=== PATIENT | male | born 1935 | race Caucasian/White ===

== ENCOUNTER → 2023-04-25 10:31 | Outpatient (REF) | payer MEDICARE, OTHER, SELFPAY ==
[2023-04-25 11:01] LABS: % Basophils 0.2 % (0-2); % Eosinophils 3.6 % (0-6); % Immature Granulocytes 0.2 % (0-0.5); % Monocytes 8.1 % (1.7-9.3); % Neutrophils 71.9 % (42.2-75.2); Absolute Eosinophils 0.2 10^3/uL (0-0.7); Absolute Lymphocytes 0.8 10^3/uL (1.2-3.4); Absolute Monocytes 0.4 10^3/uL (0.1-0.6); Absolute Neutrophils 3.6 10^3/uL (1.4-6.5); Hematocrit 32.5 % (39.0-52.0); Hemoglobin 10.8 g/dL (13.0-18.0); Mean Corp Hgb Conc. 33.2 g/dL (33.0-37.0); Mean Corpuscular Hgb 32.2 pg (27.0-31.0); Nucleated Red Blood Cells % 0 % (-); Platelet Count 163 10^3/uL (130-400); Red Blood Cell Count 3.35 10^6/uL (4.70-6.10); White Blood Cell Count 5.1 10^3/uL (4.8-10.8)
[2023-04-25 11:21] LABS: Iron 78 ug/dl (49-181)
[2023-04-25 11:31] LABS: Percent Saturation 23 % (20-50); Total Iron Binding Capacity 337 ug/dl (261-462)
== END ==
LOC: REG 10:31
PROVIDERS: ATTENDING PHYSICIAN Internal Medicine Hematology & Oncology; FAMILY PHYSICIAN Family Medicine
DX: Z85.46 Personal history of malignant neoplasm of prostate (principal); D50.8 Other iron deficiency anemias; D46.9 Myelodysplastic syndrome, unspecified
CPT/HCPCS: 36415; 82728; 83540; 83550; 85025

== ENCOUNTER → 2023-06-04 15:38 | Outpatient (REF) | payer MEDICARE, OTHER, SELFPAY ==
[2023-06-04 16:29] LABS: % Basophils 0.2 % (0-2); % Eosinophils 3.4 % (0-6); % Immature Granulocytes 0.5 % (0-0.5); % Lymphocytes 16.2 % (20.5-51.1); % Monocytes 9.2 % (1.7-9.3); % Neutrophils 70.5 % (42.2-75.2); Absolute Eosinophils 0.2 10^3/uL (0-0.7); Absolute Monocytes 0.6 10^3/uL (0.1-0.6); Absolute Neutrophils 4.2 10^3/uL (1.4-6.5); Hematocrit 29.7 % (39.0-52.0); Mean Corp Hgb Conc. 33.7 g/dL (33.0-37.0); Mean Corpuscular Hgb 31.9 pg (27.0-31.0); Mean Corpuscular Volume 94.9 fL (80.0-94.0); Nucleated Red Blood Cells % 0 % (-); Platelet Count 181 10^3/uL (130-400); Red Blood Cell Count 3.13 10^6/uL (4.70-6.10); Red Cell Dist. Width 14.1 % (11.5-14.5)
[2023-06-04 16:45] LABS: Iron 88 ug/dl (49-181)
[2023-06-04 16:54] LABS: Percent Saturation 28 % (20-50); Total Iron Binding Capacity 308 ug/dl (261-462)
== END ==
LOC: REG 15:38
PROVIDERS: ATTENDING PHYSICIAN Internal Medicine Hematology & Oncology; FAMILY PHYSICIAN Family Medicine
DX: Z85.46 Personal history of malignant neoplasm of prostate (principal); D50.8 Other iron deficiency anemias; D46.9 Myelodysplastic syndrome, unspecified
CPT/HCPCS: 36415; 82728; 83540; 83550; 85025

== ENCOUNTER → 2023-06-29 13:48 | Outpatient (REF) | payer MEDICARE, OTHER, SELFPAY ==
[2023-06-29 14:41] LABS: % Basophils 0.2 % (0-2); % Eosinophils 3.7 % (0-6); % Immature Granulocytes 0.2 % (0-0.5); % Lymphocytes 16.1 % (20.5-51.1); % Monocytes 8.9 % (1.7-9.3); % Neutrophils 70.9 % (42.2-75.2); Absolute Eosinophils 0.2 10^3/uL (0-0.7); Absolute Lymphocytes 0.7 10^3/uL (1.2-3.4); Absolute Monocytes 0.4 10^3/uL (0.1-0.6); Absolute Neutrophils 3.3 10^3/uL (1.4-6.5); Hematocrit 29.5 % (39.0-52.0); Hemoglobin 9.8 g/dL (13.0-18.0); Mean Corp Hgb Conc. 33.2 g/dL (33.0-37.0); Mean Corpuscular Volume 93.4 fL (80.0-94.0); Mean Platelet Volume 10.6 fL (7.4-10.4); Nucleated Red Blood Cells % 0 % (-); Platelet Count 163 10^3/uL (130-400); Red Blood Cell Count 3.16 10^6/uL (4.70-6.10); Red Cell Dist. Width 14.1 % (11.5-14.5); White Blood Cell Count 4.6 10^3/uL (4.8-10.8)
[2023-06-29 14:52] LABS: Iron 85 ug/dl (49-181)
[2023-06-29 15:03] LABS: Percent Saturation 26 % (20-50); Total Iron Binding Capacity 319 ug/dl (261-462)
== END ==
LOC: REG 13:48
PROVIDERS: ATTENDING PHYSICIAN Internal Medicine Hematology & Oncology
DX: Z85.46 Personal history of malignant neoplasm of prostate (principal); D50.8 Other iron deficiency anemias; D46.9 Myelodysplastic syndrome, unspecified
CPT/HCPCS: 36415; 82728; 83540; 83550; 85025

== ENCOUNTER → 2023-07-06 15:09 | Outpatient (REF) | payer MEDICARE, OTHER, SELFPAY ==
[2023-07-06 10:09] LABS: % Basophils 0.2 % (0-2); % Eosinophils 4.5 % (0-6); % Lymphocytes 22.6 % (20.5-51.1); % Monocytes 8.4 % (1.7-9.3); % Neutrophils 64.3 % (42.2-75.2); Absolute Eosinophils 0.2 10^3/uL (0-0.7); Absolute Lymphocytes 1.1 10^3/uL (1.2-3.4); Absolute Monocytes 0.4 10^3/uL (0.1-0.6); Hematocrit 31.6 % (39.0-52.0); Hemoglobin 10.3 g/dL (13.0-18.0); Mean Corp Hgb Conc. 32.6 g/dL (33.0-37.0); Mean Corpuscular Hgb 32.1 pg (27.0-31.0); Mean Corpuscular Volume 98.4 fL (80.0-94.0); Nucleated Red Blood Cells % 0 % (-); Platelet Count 175 10^3/uL (130-400); Red Blood Cell Count 3.21 10^6/uL (4.70-6.10); Red Cell Dist. Width 14.3 % (11.5-14.5); White Blood Cell Count 4.7 10^3/uL (4.8-10.8)
[2023-07-06 10:27] LABS: Blood Urea Nitrogen 29 mg/dl (9-20)
== END ==
LOC: OIDL 15:09
PROVIDERS: ATTENDING PHYSICIAN Internal Medicine Hematology & Oncology
DX: Z85.46 Personal history of malignant neoplasm of prostate (principal)
CPT/HCPCS: 82565; 84520; 85025

== ENCOUNTER → 2023-07-12 13:27 | Outpatient (REF) | payer MEDICARE, OTHER, SELFPAY ==
[2023-07-12 14:08] LABS: % Basophils 0.2 % (0-2); % Eosinophils 3.9 % (0-6); % Immature Granulocytes 0.4 % (0-0.5); % Lymphocytes 16.9 % (20.5-51.1); % Monocytes 11.7 % (1.7-9.3); % Neutrophils 66.9 % (42.2-75.2); Absolute Eosinophils 0.2 10^3/uL (0-0.7); Absolute Lymphocytes 0.9 10^3/uL (1.2-3.4); Absolute Monocytes 0.6 10^3/uL (0.1-0.6); Absolute Neutrophils 3.6 10^3/uL (1.4-6.5); Hematocrit 29.7 % (39.0-52.0); Hemoglobin 9.8 g/dL (13.0-18.0); Mean Corpuscular Hgb 31.5 pg (27.0-31.0); Mean Corpuscular Volume 95.5 fL (80.0-94.0); Mean Platelet Volume 9.7 fL (7.4-10.4); Nucleated Red Blood Cells % 0 % (-); Platelet Count 167 10^3/uL (130-400); Red Blood Cell Count 3.11 10^6/uL (4.70-6.10); Red Cell Dist. Width 14.5 % (11.5-14.5); White Blood Cell Count 5.4 10^3/uL (4.8-10.8)
== END ==
LOC: REG 13:27
PROVIDERS: ATTENDING PHYSICIAN Internal Medicine Hematology & Oncology; FAMILY PHYSICIAN Family Medicine
DX: Z85.46 Personal history of malignant neoplasm of prostate (principal); D50.8 Other iron deficiency anemias; D46.9 Myelodysplastic syndrome, unspecified
CPT/HCPCS: 36415; 85025

== ENCOUNTER → 2023-07-23 14:44 | Outpatient (REF) | payer MEDICARE, OTHER, SELFPAY ==
[2023-07-23 16:14] LABS: % Basophils 0.2 % (0-2); % Eosinophils 2.8 % (0-6); % Immature Granulocytes 0.4 % (0-0.5); % Lymphocytes 14.2 % (20.5-51.1); % Neutrophils 73.4 % (42.2-75.2); Absolute Eosinophils 0.2 10^3/uL (0-0.7); Absolute Lymphocytes 0.8 10^3/uL (1.2-3.4); Absolute Monocytes 0.5 10^3/uL (0.1-0.6); Absolute Neutrophils 4.1 10^3/uL (1.4-6.5); Hematocrit 31.8 % (39.0-52.0); Hemoglobin 10.7 g/dL (13.0-18.0); Mean Corp Hgb Conc. 33.6 g/dL (33.0-37.0); Mean Corpuscular Hgb 31.2 pg (27.0-31.0); Mean Corpuscular Volume 92.7 fL (80.0-94.0); Mean Platelet Volume 10.1 fL (7.4-10.4); Nucleated Red Blood Cells % 0 % (-); Platelet Count 161 10^3/uL (130-400); Red Blood Cell Count 3.43 10^6/uL (4.70-6.10); Red Cell Dist. Width 15.4 % (11.5-14.5); White Blood Cell Count 5.6 10^3/uL (4.8-10.8)
== END ==
LOC: REG 14:44
PROVIDERS: ATTENDING PHYSICIAN Internal Medicine Hematology & Oncology; FAMILY PHYSICIAN Family Medicine
DX: Z85.46 Personal history of malignant neoplasm of prostate (principal); D50.8 Other iron deficiency anemias; D46.9 Myelodysplastic syndrome, unspecified
CPT/HCPCS: 36415; 85025

== ENCOUNTER → 2023-08-01 12:42 | Outpatient (REF) | payer MEDICARE, OTHER, SELFPAY ==
[2023-08-01 14:06] LABS: % Basophils 0.2 % (0-2); % Eosinophils 2.4 % (0-6); % Immature Granulocytes 0.2 % (0-0.5); % Lymphocytes 15.5 % (20.5-51.1); % Monocytes 9.6 % (1.7-9.3); % Neutrophils 72.1 % (42.2-75.2); Absolute Eosinophils 0.1 10^3/uL (0-0.7); Absolute Lymphocytes 0.7 10^3/uL (1.2-3.4); Absolute Monocytes 0.4 10^3/uL (0.1-0.6); Absolute Neutrophils 3.3 10^3/uL (1.4-6.5); Hematocrit 34.8 % (39.0-52.0); Hemoglobin 11.2 g/dL (13.0-18.0); Mean Corp Hgb Conc. 32.2 g/dL (33.0-37.0); Mean Corpuscular Hgb 30.7 pg (27.0-31.0); Mean Corpuscular Volume 95.3 fL (80.0-94.0); Mean Platelet Volume 9.9 fL (7.4-10.4); Nucleated Red Blood Cells % 0 % (-); Platelet Count 217 10^3/uL (130-400); Red Blood Cell Count 3.65 10^6/uL (4.70-6.10); Red Cell Dist. Width 14.8 % (11.5-14.5); White Blood Cell Count 4.6 10^3/uL (4.8-10.8)
== END ==
LOC: REG 12:42
PROVIDERS: ATTENDING PHYSICIAN Internal Medicine Hematology & Oncology; FAMILY PHYSICIAN Family Medicine
DX: Z85.46 Personal history of malignant neoplasm of prostate (principal); D50.8 Other iron deficiency anemias; D46.9 Myelodysplastic syndrome, unspecified
CPT/HCPCS: 36415; 85025

== ENCOUNTER → 2023-08-17 14:47 | Outpatient (REF) | payer MEDICARE, OTHER, SELFPAY | LOC: RAD 14:47 | PROVIDERS: ATTENDING PHYSICIAN Surgery Vascular Surgery; FAMILY PHYSICIAN Family Medicine | DX: I65.22 Occlusion and stenosis of left carotid artery (principal) | CPT/HCPCS: 93880 ==

== ENCOUNTER → 2023-08-22 12:26 | Outpatient (REF) | payer MEDICARE, OTHER, SELFPAY ==
[2023-08-22 13:11] LABS: % Basophils 0.2 % (0-2); % Eosinophils 3.1 % (0-6); % Immature Granulocytes 0.2 % (0-0.5); % Lymphocytes 16.6 % (20.5-51.1); % Monocytes 9.6 % (1.7-9.3); % Neutrophils 70.3 % (42.2-75.2); Absolute Eosinophils 0.1 10^3/uL (0-0.7); Absolute Lymphocytes 0.7 10^3/uL (1.2-3.4); Absolute Monocytes 0.4 10^3/uL (0.1-0.6); Absolute Neutrophils 3.1 10^3/uL (1.4-6.5); Hemoglobin 11.9 g/dL (13.0-18.0); Mean Corp Hgb Conc. 33.1 g/dL (33.0-37.0); Mean Corpuscular Hgb 30.7 pg (27.0-31.0); Mean Platelet Volume 9.8 fL (7.4-10.4); Nucleated Red Blood Cells % 0 % (-); Platelet Count 177 10^3/uL (130-400); Red Blood Cell Count 3.87 10^6/uL (4.70-6.10); Red Cell Dist. Width 15.5 % (11.5-14.5); White Blood Cell Count 4.5 10^3/uL (4.8-10.8)
== END ==
LOC: REG 12:26
PROVIDERS: ATTENDING PHYSICIAN Internal Medicine Hematology & Oncology; FAMILY PHYSICIAN Family Medicine
DX: Z85.46 Personal history of malignant neoplasm of prostate (principal); D50.8 Other iron deficiency anemias; D46.9 Myelodysplastic syndrome, unspecified
CPT/HCPCS: 36415; 85025

== ENCOUNTER → 2023-09-14 11:18 | Outpatient (REF) | payer MEDICARE, OTHER, SELFPAY ==
[2023-09-14 12:04] LABS: % Basophils 0.2 % (0-2); % Eosinophils 1.9 % (0-6); % Immature Granulocytes 0.2 % (0-0.5); % Lymphocytes 12.6 % (20.5-51.1); % Monocytes 6.7 % (1.7-9.3); % Neutrophils 78.4 % (42.2-75.2); Absolute Eosinophils 0.1 10^3/uL (0-0.7); Absolute Lymphocytes 0.7 10^3/uL (1.2-3.4); Absolute Monocytes 0.4 10^3/uL (0.1-0.6); Absolute Neutrophils 4.6 10^3/uL (1.4-6.5); Hematocrit 38.5 % (39.0-52.0); Hemoglobin 12.3 g/dL (13.0-18.0); Mean Corp Hgb Conc. 31.9 g/dL (33.0-37.0); Mean Corpuscular Hgb 29.5 pg (27.0-31.0); Mean Corpuscular Volume 92.3 fL (80.0-94.0); Mean Platelet Volume 9.9 fL (7.4-10.4); Nucleated Red Blood Cells % 0 % (-); Platelet Count 190 10^3/uL (130-400); Red Blood Cell Count 4.17 10^6/uL (4.70-6.10); Red Cell Dist. Width 15.5 % (11.5-14.5); White Blood Cell Count 5.9 10^3/uL (4.8-10.8)
[2023-09-14 12:59] LABS: Iron 63 ug/dl (49-181)
[2023-09-14 13:08] LABS: Percent Saturation 18 % (20-50); Total Iron Binding Capacity 339 ug/dl (261-462)
[2023-09-14 13:33] LABS: Ferritin 74.7 ng/ml (17.9-464.0)
== END ==
LOC: OIDL 11:18
PROVIDERS: ATTENDING PHYSICIAN Nurse Practitioner Primary Care
DX: Z85.46 Personal history of malignant neoplasm of prostate (principal); D50.8 Other iron deficiency anemias
CPT/HCPCS: 82728; 83540; 83550; 85025

== ENCOUNTER → 2023-10-08 13:14 | Outpatient (REF) | payer MEDICARE, OTHER, SELFPAY ==
[2023-10-08 13:52] LABS: % Basophils 0.2 % (0-2); % Eosinophils 2.8 % (0-6); % Immature Granulocytes 0.3 % (0-0.5); % Monocytes 10.4 % (1.7-9.3); % Neutrophils 73.3 % (42.2-75.2); Absolute Eosinophils 0.2 10^3/uL (0-0.7); Absolute Lymphocytes 0.8 10^3/uL (1.2-3.4); Absolute Monocytes 0.6 10^3/uL (0.1-0.6); Absolute Neutrophils 4.3 10^3/uL (1.4-6.5); Hematocrit 33.8 % (39.0-52.0); Hemoglobin 10.9 g/dL (13.0-18.0); Mean Corp Hgb Conc. 32.2 g/dL (33.0-37.0); Mean Corpuscular Hgb 29.5 pg (27.0-31.0); Mean Corpuscular Volume 91.4 fL (80.0-94.0); Mean Platelet Volume 10.1 fL (7.4-10.4); Nucleated Red Blood Cells % 0 % (-); Platelet Count 151 10^3/uL (130-400); Red Cell Dist. Width 16.1 % (11.5-14.5); White Blood Cell Count 5.8 10^3/uL (4.8-10.8)
[2023-10-08 14:12] LABS: Blood Urea Nitrogen 36 mg/dl (9-20); Iron 103 ug/dl (49-181)
[2023-10-08 14:22] LABS: Percent Saturation 31 % (20-50); Total Iron Binding Capacity 324 ug/dl (261-462)
[2023-10-08 14:56] LABS: Ferritin 98.3 ng/ml (17.9-464.0)
== END ==
LOC: REG 13:14
PROVIDERS: ATTENDING PHYSICIAN Internal Medicine Hematology & Oncology; FAMILY PHYSICIAN Family Medicine
DX: Z85.46 Personal history of malignant neoplasm of prostate (principal); D50.8 Other iron deficiency anemias; D46.9 Myelodysplastic syndrome, unspecified
CPT/HCPCS: 36415; 82565; 82728; 83540; 83550; 84520; 85025

== ENCOUNTER → 2023-10-15 15:58 | Outpatient (REF) | payer MEDICARE, OTHER, SELFPAY ==
[2023-10-15 11:54] LABS: % Basophils 0.2 % (0-2); % Eosinophils 2.6 % (0-6); % Immature Granulocytes 0.3 % (0-0.5); % Lymphocytes 12.7 % (20.5-51.1); % Monocytes 9.7 % (1.7-9.3); % Neutrophils 74.5 % (42.2-75.2); Absolute Eosinophils 0.2 10^3/uL (0-0.7); Absolute Lymphocytes 0.8 10^3/uL (1.2-3.4); Absolute Monocytes 0.6 10^3/uL (0.1-0.6); Absolute Neutrophils 4.5 10^3/uL (1.4-6.5); Hematocrit 32.3 % (39.0-52.0); Hemoglobin 10.8 g/dL (13.0-18.0); Mean Corp Hgb Conc. 33.4 g/dL (33.0-37.0); Mean Corpuscular Hgb 30.2 pg (27.0-31.0); Mean Corpuscular Volume 90.2 fL (80.0-94.0); Mean Platelet Volume 10.3 fL (7.4-10.4); Nucleated Red Blood Cells % 0 % (-); Platelet Count 169 10^3/uL (130-400); Red Blood Cell Count 3.58 10^6/uL (4.70-6.10); Red Cell Dist. Width 16.2 % (11.5-14.5); White Blood Cell Count 6.1 10^3/uL (4.8-10.8)
== END ==
LOC: OIDL 15:58
PROVIDERS: ATTENDING PHYSICIAN Internal Medicine Hematology & Oncology
DX: Z85.46 Personal history of malignant neoplasm of prostate (principal)
CPT/HCPCS: 85025

== ENCOUNTER → 2023-11-05 15:58 | Outpatient (REF) | payer MEDICARE, OTHER, SELFPAY ==
[2023-11-05 11:59] LABS: % Basophils 0.2 % (0-2); % Eosinophils 3.8 % (0-6); % Immature Granulocytes 0.2 % (0-0.5); % Lymphocytes 14.9 % (20.5-51.1); % Monocytes 8.2 % (1.7-9.3); % Neutrophils 72.7 % (42.2-75.2); Absolute Eosinophils 0.2 10^3/uL (0-0.7); Absolute Lymphocytes 0.7 10^3/uL (1.2-3.4); Absolute Monocytes 0.4 10^3/uL (0.1-0.6); Absolute Neutrophils 3.3 10^3/uL (1.4-6.5); Hematocrit 37.2 % (39.0-52.0); Mean Corp Hgb Conc. 32.3 g/dL (33.0-37.0); Mean Corpuscular Hgb 30.4 pg (27.0-31.0); Mean Corpuscular Volume 94.2 fL (80.0-94.0); Mean Platelet Volume 10.3 fL (7.4-10.4); Nucleated Red Blood Cells % 0 % (-); Platelet Count 182 10^3/uL (130-400); Red Blood Cell Count 3.95 10^6/uL (4.70-6.10); Red Cell Dist. Width 17.8 % (11.5-14.5); White Blood Cell Count 4.5 10^3/uL (4.8-10.8)
== END ==
LOC: OIDL 15:58
PROVIDERS: ATTENDING PHYSICIAN Nurse Practitioner Primary Care
DX: Z85.46 Personal history of malignant neoplasm of prostate (principal)
CPT/HCPCS: 85025

== ENCOUNTER → 2023-11-23 13:02 | Outpatient (REF) | payer MEDICARE, OTHER, SELFPAY ==
[2023-11-23 14:05] LABS: % Basophils 0.4 % (0-2); % Eosinophils 3.4 % (0-6); % Immature Granulocytes 0.5 % (0-0.5); % Lymphocytes 15.4 % (20.5-51.1); % Monocytes 8.9 % (1.7-9.3); % Neutrophils 71.4 % (42.2-75.2); Absolute Eosinophils 0.2 10^3/uL (0-0.7); Absolute Lymphocytes 0.9 10^3/uL (1.2-3.4); Absolute Monocytes 0.5 10^3/uL (0.1-0.6); Hematocrit 34.5 % (39.0-52.0); Hemoglobin 11.1 g/dL (13.0-18.0); Mean Corp Hgb Conc. 32.2 g/dL (33.0-37.0); Mean Corpuscular Hgb 30.9 pg (27.0-31.0); Mean Corpuscular Volume 96.1 fL (80.0-94.0); Mean Platelet Volume 10.5 fL (7.4-10.4); Nucleated Red Blood Cells % 0 % (-); Platelet Count 159 10^3/uL (130-400); Red Blood Cell Count 3.59 10^6/uL (4.70-6.10); Red Cell Dist. Width 16.9 % (11.5-14.5); White Blood Cell Count 5.5 10^3/uL (4.8-10.8)
== END ==
LOC: REG 13:02
PROVIDERS: ATTENDING PHYSICIAN Internal Medicine Hematology & Oncology; FAMILY PHYSICIAN Radiology Vascular & Interventional Radiology
DX: Z85.46 Personal history of malignant neoplasm of prostate (principal); D50.8 Other iron deficiency anemias; D46.9 Myelodysplastic syndrome, unspecified
CPT/HCPCS: 36415; 85025

== ENCOUNTER → 2023-12-05 14:34 | Outpatient (REF) | payer MEDICARE, OTHER, SELFPAY ==
[2023-12-05 15:08] LABS: % Basophils 0.4 % (0-2); % Eosinophils 3.2 % (0-6); % Immature Granulocytes 0.4 % (0-0.5); % Lymphocytes 14.7 % (20.5-51.1); % Monocytes 9.9 % (1.7-9.3); % Neutrophils 71.4 % (42.2-75.2); Absolute Eosinophils 0.2 10^3/uL (0-0.7); Absolute Lymphocytes 0.8 10^3/uL (1.2-3.4); Absolute Monocytes 0.6 10^3/uL (0.1-0.6); Hematocrit 34.4 % (39.0-52.0); Hemoglobin 11.6 g/dL (13.0-18.0); Mean Corp Hgb Conc. 33.7 g/dL (33.0-37.0); Mean Corpuscular Hgb 31.9 pg (27.0-31.0); Mean Corpuscular Volume 94.5 fL (80.0-94.0); Mean Platelet Volume 10.5 fL (7.4-10.4); Nucleated Red Blood Cells % 0 % (-); Platelet Count 158 10^3/uL (130-400); Red Blood Cell Count 3.64 10^6/uL (4.70-6.10); Red Cell Dist. Width 17.8 % (11.5-14.5); White Blood Cell Count 5.6 10^3/uL (4.8-10.8)
== END ==
LOC: REG 14:34
PROVIDERS: ATTENDING PHYSICIAN Internal Medicine Hematology & Oncology; FAMILY PHYSICIAN Family Medicine
DX: Z85.46 Personal history of malignant neoplasm of prostate (principal); D50.8 Other iron deficiency anemias; D46.9 Myelodysplastic syndrome, unspecified
CPT/HCPCS: 36415; 85025

== ENCOUNTER → 2023-12-17 10:48 | Outpatient (REF) | payer MEDICARE, OTHER, SELFPAY ==
[2023-12-17 11:44] LABS: % Basophils 0.3 % (0-2); % Eosinophils 3.3 % (0-6); % Immature Granulocytes 0.3 % (0-0.5); % Lymphocytes 17.6 % (20.5-51.1); % Monocytes 13.3 % (1.7-9.3); % Neutrophils 65.2 % (42.2-75.2); Absolute Eosinophils 0.1 10^3/uL (0-0.7); Absolute Lymphocytes 0.7 10^3/uL (1.2-3.4); Absolute Monocytes 0.5 10^3/uL (0.1-0.6); Absolute Neutrophils 2.6 10^3/uL (1.4-6.5); Hematocrit 35.2 % (39.0-52.0); Hemoglobin 11.7 g/dL (13.0-18.0); Mean Corp Hgb Conc. 33.2 g/dL (33.0-37.0); Mean Corpuscular Hgb 32.5 pg (27.0-31.0); Mean Corpuscular Volume 97.8 fL (80.0-94.0); Mean Platelet Volume 9.8 fL (7.4-10.4); Nucleated Red Blood Cells % 0 % (-); Platelet Count 167 10^3/uL (130-400); Red Cell Dist. Width 15.8 % (11.5-14.5); White Blood Cell Count 3.9 10^3/uL (4.8-10.8)
== END ==
LOC: REG 10:48
PROVIDERS: ATTENDING PHYSICIAN Internal Medicine Hematology & Oncology; FAMILY PHYSICIAN Family Medicine
DX: Z85.46 Personal history of malignant neoplasm of prostate (principal); D50.8 Other iron deficiency anemias; D46.9 Myelodysplastic syndrome, unspecified
CPT/HCPCS: 36415; 85025

== ENCOUNTER → 2024-02-05 14:38 | Outpatient (REF) | payer MEDICARE, OTHER, SELFPAY ==
[2024-02-05 13:36] LABS: % Eosinophils 1.3 % (0-6); % Immature Granulocytes 0.3 % (0-0.5); % Lymphocytes 11.7 % (20.5-51.1); % Monocytes 9.8 % (1.7-9.3); % Neutrophils 76.9 % (42.2-75.2); Absolute Eosinophils 0.1 10^3/uL (0-0.7); Absolute Lymphocytes 0.9 10^3/uL (1.2-3.4); Absolute Monocytes 0.8 10^3/uL (0.1-0.6); Absolute Neutrophils 6.2 10^3/uL (1.4-6.5); Hematocrit 38.4 % (39.0-52.0); Hemoglobin 12.6 g/dL (13.0-18.0); Mean Corp Hgb Conc. 32.8 g/dL (33.0-37.0); Mean Corpuscular Hgb 31.8 pg (27.0-31.0); Mean Platelet Volume 10.3 fL (7.4-10.4); Platelet Count 169 10^3/uL (130-400); Red Blood Cell Count 3.96 10^6/uL (4.70-6.10); Red Cell Dist. Width 15.2 % (11.5-14.5)
== END ==
LOC: OIDL 14:38
PROVIDERS: ATTENDING PHYSICIAN Nurse Practitioner Primary Care
DX: Z85.46 Personal history of malignant neoplasm of prostate (principal); D50.8 Other iron deficiency anemias; D46.9 Myelodysplastic syndrome, unspecified
CPT/HCPCS: 85025

== ENCOUNTER → 2024-02-18 15:15 | Outpatient (REF) | payer MEDICARE, OTHER, SELFPAY ==
[2024-02-18 11:49] LABS: % Basophils 0.3 % (0-2); % Eosinophils 5.6 % (0-6); % Immature Granulocytes 0.6 % (0-0.5); % Lymphocytes 14.1 % (20.5-51.1); % Monocytes 9.5 % (1.7-9.3); % Neutrophils 69.9 % (42.2-75.2); Absolute Eosinophils 0.4 10^3/uL (0-0.7); Absolute Lymphocytes 0.9 10^3/uL (1.2-3.4); Absolute Monocytes 0.6 10^3/uL (0.1-0.6); Absolute Neutrophils 4.5 10^3/uL (1.4-6.5); Hematocrit 34.7 % (39.0-52.0); Hemoglobin 11.5 g/dL (13.0-18.0); Mean Corp Hgb Conc. 33.1 g/dL (33.0-37.0); Mean Corpuscular Hgb 31.2 pg (27.0-31.0); Mean Platelet Volume 9.8 fL (7.4-10.4); Nucleated Red Blood Cells % 0 % (-); Platelet Count 267 10^3/uL (130-400); Red Blood Cell Count 3.69 10^6/uL (4.70-6.10); Red Cell Dist. Width 14.8 % (11.5-14.5); White Blood Cell Count 6.5 10^3/uL (4.8-10.8)
[2024-02-18 12:15] LABS: Iron 100 ug/dl (49-181)
[2024-02-18 12:25] LABS: Percent Saturation 35 % (20-50); Total Iron Binding Capacity 284 ug/dl (261-462)
== END ==
LOC: OIDL 15:15
PROVIDERS: ATTENDING PHYSICIAN Internal Medicine Hematology & Oncology
DX: Z85.46 Personal history of malignant neoplasm of prostate (principal); D50.8 Other iron deficiency anemias; D46.9 Myelodysplastic syndrome, unspecified; D64.9 Anemia, unspecified
CPT/HCPCS: 82728; 83540; 83550; 85025

== ENCOUNTER → 2024-03-10 15:51 | Outpatient (REF) | payer MEDICARE, OTHER, SELFPAY ==
[2024-03-10 11:35] LABS: % Basophils 0.2 % (0-2); % Eosinophils 2.9 % (0-6); % Immature Granulocytes 0.2 % (0-0.5); % Lymphocytes 17.2 % (20.5-51.1); % Monocytes 8.2 % (1.7-9.3); % Neutrophils 71.3 % (42.2-75.2); Absolute Eosinophils 0.2 10^3/uL (0-0.7); Absolute Monocytes 0.5 10^3/uL (0.1-0.6); Absolute Neutrophils 4.2 10^3/uL (1.4-6.5); Hemoglobin 12.9 g/dL (13.0-18.0); Mean Corp Hgb Conc. 32.3 g/dL (33.0-37.0); Mean Corpuscular Hgb 31.5 pg (27.0-31.0); Mean Corpuscular Volume 97.6 fL (80.0-94.0); Mean Platelet Volume 9.9 fL (7.4-10.4); Platelet Count 182 10^3/uL (130-400); Red Cell Dist. Width 16.4 % (11.5-14.5); White Blood Cell Count 5.9 10^3/uL (4.8-10.8)
== END ==
LOC: OIDL 15:51
PROVIDERS: ATTENDING PHYSICIAN Nurse Practitioner Primary Care
DX: Z85.46 Personal history of malignant neoplasm of prostate (principal)
CPT/HCPCS: 85025

== ENCOUNTER → 2024-03-31 16:13 | Outpatient (REF) | payer MEDICARE, OTHER, SELFPAY ==
[2024-03-31 11:10] LABS: % Basophils 0.2 % (0-2); % Eosinophils 4.2 % (0-6); % Immature Granulocytes 0.3 % (0-0.5); % Lymphocytes 15.8 % (20.5-51.1); % Monocytes 9.3 % (1.7-9.3); % Neutrophils 70.2 % (42.2-75.2); Absolute Eosinophils 0.3 10^3/uL (0-0.7); Absolute Monocytes 0.6 10^3/uL (0.1-0.6); Absolute Neutrophils 4.2 10^3/uL (1.4-6.5); Hematocrit 37.4 % (39.0-52.0); Mean Corp Hgb Conc. 32.1 g/dL (33.0-37.0); Mean Corpuscular Hgb 31.3 pg (27.0-31.0); Mean Corpuscular Volume 97.4 fL (80.0-94.0); Mean Platelet Volume 9.3 fL (7.4-10.4); Platelet Count 157 10^3/uL (130-400); Red Blood Cell Count 3.84 10^6/uL (4.70-6.10); Red Cell Dist. Width 15.7 % (11.5-14.5)
== END ==
LOC: OIDL 16:13
PROVIDERS: ATTENDING PHYSICIAN Nurse Practitioner Primary Care
DX: Z85.46 Personal history of malignant neoplasm of prostate (principal)
CPT/HCPCS: 85025

== ENCOUNTER → 2024-04-21 12:29 | Outpatient (REF) | payer MEDICARE, OTHER, SELFPAY ==
[2024-04-21 12:27] LABS: % Basophils 0.4 % (0-2); % Eosinophils 3.3 % (0-6); % Immature Granulocytes 0.2 % (0-0.5); % Lymphocytes 14.1 % (20.5-51.1); % Monocytes 8.9 % (1.7-9.3); % Neutrophils 73.1 % (42.2-75.2); Absolute Eosinophils 0.2 10^3/uL (0-0.7); Absolute Lymphocytes 0.7 10^3/uL (1.2-3.4); Absolute Monocytes 0.5 10^3/uL (0.1-0.6); Absolute Neutrophils 3.8 10^3/uL (1.4-6.5); Hematocrit 35.9 % (39.0-52.0); Hemoglobin 11.5 g/dL (13.0-18.0); Mean Corpuscular Volume 96.8 fL (80.0-94.0); Mean Platelet Volume 9.7 fL (7.4-10.4); Platelet Count 157 10^3/uL (130-400); Red Blood Cell Count 3.71 10^6/uL (4.70-6.10); Red Cell Dist. Width 15.2 % (11.5-14.5); White Blood Cell Count 5.2 10^3/uL (4.8-10.8)
== END ==
LOC: OIDL 12:29
PROVIDERS: ATTENDING PHYSICIAN Nurse Practitioner Primary Care
DX: Z85.46 Personal history of malignant neoplasm of prostate (principal)
CPT/HCPCS: 85025

== ENCOUNTER → 2024-05-07 10:10 | Outpatient (REF) | payer MEDICARE, OTHER, SELFPAY ==
[2024-05-07 13:16] LABS: Blood Urea Nitrogen 35 mg/dl (9-20); Calcium 9.4 mg/dl (8.4-10.2); Carbon Dioxide 31 mmol/L (22-30); Chloride 98 mmol/L (98-107); Glucose 108 mg/dl (70-99); Potassium 4.8 mmol/L (3.5-5.1); Sodium 140 mmol/L (135-145); eGFR 44.78
== END ==
LOC: REG 10:10
PROVIDERS: ATTENDING PHYSICIAN Nurse Practitioner Gerontology; FAMILY PHYSICIAN Family Medicine
DX: I50.32 Chronic diastolic (congestive) heart failure (principal)
CPT/HCPCS: 36415; 80048

== ENCOUNTER → 2024-05-12 13:59 | Outpatient (REF) | payer MEDICARE, OTHER, SELFPAY ==
[2024-05-12 11:29] LABS: % Basophils 0.2 % (0-2); % Eosinophils 2.8 % (0-6); % Immature Granulocytes 0.2 % (0-0.5); % Lymphocytes 12.6 % (20.5-51.1); % Monocytes 6.9 % (1.7-9.3); % Neutrophils 77.3 % (42.2-75.2); Absolute Eosinophils 0.2 10^3/uL (0-0.7); Absolute Lymphocytes 0.8 10^3/uL (1.2-3.4); Absolute Monocytes 0.4 10^3/uL (0.1-0.6); Absolute Neutrophils 4.8 10^3/uL (1.4-6.5); Hemoglobin 12.1 g/dL (13.0-18.0); Mean Corp Hgb Conc. 32.7 g/dL (33.0-37.0); Mean Corpuscular Hgb 30.9 pg (27.0-31.0); Mean Corpuscular Volume 94.6 fL (80.0-94.0); Mean Platelet Volume 9.4 fL (7.4-10.4); Platelet Count 194 10^3/uL (130-400); Red Blood Cell Count 3.91 10^6/uL (4.70-6.10); Red Cell Dist. Width 14.7 % (11.5-14.5); White Blood Cell Count 6.1 10^3/uL (4.8-10.8)
[2024-05-12 11:50] LABS: Iron 84 ug/dl (49-181)
[2024-05-12 12:01] LABS: Percent Saturation 24 % (20-50); Total Iron Binding Capacity 344 ug/dl (261-462)
== END ==
LOC: OIDL 13:59
PROVIDERS: ATTENDING PHYSICIAN Internal Medicine Hematology & Oncology
DX: Z85.46 Personal history of malignant neoplasm of prostate (principal); D50.8 Other iron deficiency anemias
CPT/HCPCS: 82728; 83540; 83550; 85025

== ENCOUNTER → 2024-06-02 11:56 | Outpatient (REF) | payer MEDICARE, OTHER, SELFPAY ==
[2024-06-02 12:21] LABS: % Basophils 0.2 % (0-2); % Immature Granulocytes 0.2 % (0-0.5); % Lymphocytes 15.6 % (20.5-51.1); % Monocytes 8.4 % (1.7-9.3); % Neutrophils 72.6 % (42.2-75.2); Absolute Eosinophils 0.2 10^3/uL (0-0.7); Absolute Lymphocytes 0.9 10^3/uL (1.2-3.4); Absolute Monocytes 0.5 10^3/uL (0.1-0.6); Absolute Neutrophils 4.1 10^3/uL (1.4-6.5); Hemoglobin 11.8 g/dL (13.0-18.0); Mean Corp Hgb Conc. 33.7 g/dL (33.0-37.0); Mean Corpuscular Volume 94.9 fL (80.0-94.0); Mean Platelet Volume 9.8 fL (7.4-10.4); Platelet Count 171 10^3/uL (130-400); Red Blood Cell Count 3.69 10^6/uL (4.70-6.10); Red Cell Dist. Width 14.7 % (11.5-14.5); White Blood Cell Count 5.6 10^3/uL (4.8-10.8)
== END ==
LOC: OIDL 11:56
PROVIDERS: ATTENDING PHYSICIAN Nurse Practitioner Primary Care
DX: Z85.46 Personal history of malignant neoplasm of prostate (principal); D50.8 Other iron deficiency anemias; D46.9 Myelodysplastic syndrome, unspecified
CPT/HCPCS: 85025

== ENCOUNTER 2024-06-05 09:13 | Day surgery (SDC) | payer MEDICARE, OTHER, SELFPAY ==
--- NOTE | 2024-06-05 10:35 | ITS.CL.CARDI ---
Processing Manager - Cardioversion
Cardioversion
Procedure Report:
Date of Procedure: 06/05/24
Procedure: Cardioversion
Indication: Symptomatic atrial fibrillation
Performing Physician: Tavo Barnett MD
Technique: The patient was brought to the holding area. Signed informed consent was obtained. A time out was called and performed. The patient was anesthetized by the anesthesia service. Anticoagulation status was reviewed and appropriate. R2 pads
were placed anteriorly and posteriorly. A 200 J synchronized biphasic shock failed, but a 360J synchronized biphasic shock restored normal sinus rhythm without significant bradycardia. There were no complications.
Conclusion: Uncomplicated cardioversion from atrial fibrillation to sinus rhythm.
Recommendation: Routine post cardioversion care. Continue local intermodal truck driver anticoagulation.
== END 2024-06-05 11:34 | disposition home or self-care (01) ==
LOC: CATH 09:13
PROVIDERS: ATTENDING PHYSICIAN Internal Medicine Cardiovascular Disease; FAMILY PHYSICIAN Family Medicine; OTHER PHYSICIAN Internal Medicine Cardiovascular Disease
DX: I48.91 Unspecified atrial fibrillation (principal); I10 Essential (primary) hypertension; I25.10 Atherosclerotic heart disease of native coronary artery without angina pectoris; E78.5 Hyperlipidemia, unspecified; E03.9 Hypothyroidism, unspecified; Z95.1 Presence of aortocoronary bypass graft; Z85.46 Personal history of malignant neoplasm of prostate
CPT/HCPCS: 92960; 93005

== ENCOUNTER 2024-06-09 13:14 | Inpatient (IN) | payer MEDICARE, OTHER, SELFPAY ==
[2024-06-09] VITALS (8 sets, daily range): BP systolic 119–164; BP diastolic 53–93; BMI 32.4; BMI 32.2
--- NOTE | 2024-06-09 09:49 | EDRN ---
Dr. Nevarez in room w/pt at this time.
--- NOTE | 2024-06-09 10:05 | ED.GENMED ---
History of Present Illness
General
Chief Complaint: Breathing Problem
Source: patient
Exam Limitations: none
Time Seen by Provider: 06/09/24 09:40
Nursing documentation reviewed up to this point in time: agreed with
History of Present Illness
History of Present Illness:
Patient status post outpatient elective cardioversion last week, presents to ED secondary to worsening shortness of breath over the past 2 days, especially with exertion. Patient states that he has had intermittent episodes of shortness of breath
for a long period of time. Cardioversion did not improve his symptoms. Patient is currently on Eliquis daily. Denies chest pain. Denies nausea, vomiting, or diarrhea. Patient does report intermittent dry cough, with wheezing. Denies recent
travel. Denies leg pain. Patient reports mildly increased leg swelling recently, despite taking Lasix. Denies sick contact. Patient unsure of any significant weight gain recently.
Past History
Past History
ED Past Medical History: Asthma, CAD, Cancer, HTN, Hypercholesterolemia, Hypothyroidism and Other
ED Past Surgical History: Cardiac (CABG, Stents X 3)
Social History
Tobacco: Non-smoker
Alcohol: Occasional
Drug: None
Personal:
Living: with family
Employment: Retired
Review of Systems
Review of Systems
Allergies reviewed?: Yes
All Other Systems: ROS reviewed and negative except as documented in HPI and ROS
Constitutional: Reports no symptoms; Denies fever
EENT: Reports no symptoms
Respiratory: Reports cough and trouble breathing
Cardiac: Reports no symptoms
ABD/GI: Reports no symptoms; Denies vomiting or diarrhea
: Reports no symptoms
Musculoskeletal: Reports edema
Skin: Reports no symptoms
Neurological: Reports no symptoms
Phy Exam
Physical Exam
Physical Exam:
Physical Exam
General: no apparent distress, not acutely ill. afebrile
Head: nc/at. eomi
Neck: supple. normal range of motion.
Heart: s1/s2 regular rate and rhythm, no murmur.
Lungs: mild respiratory distress. expiratory wheezing bilaterally
Abdomen: normal bowel sounds. not tender.
Neuro: alert and oriented x 3. no focal neurological deficits
Skin: no rash
Psychiatric: well kept. interactive and cooperative
Extremities: LE b/l, nonpitting edema. no calf tenderness
Scores
Heart Failure Risk
Heart Failure Risk Score: Yes
History of Stroke or TIA: No
History of intubation for respiratory distress: No
Heart rate on ED arrival >/= 110: No
SaO2 <90% on arrival on room air: No
HR >/=110 during 3min walk test (or too ill to perform test): No
ECG has acute ischemic changes: No
Urea >/=12mmol/L (BUN 33.6mg/dL): No
Serum CO2>/=35mmol/L: No
Troponin I or T elevated to MD Level (0.4mg/dL): No
NT-proBNP >/=5,000ng/L (5,000pg/ml): No
HF Risk Score: 0
Admission Status: LOW RISK 2.8% Consider discharge to home with f/u visit to PCP/Waiter/[employer]
Course
Orders/Labs/Results
Orders:
Orders
06/09/24 Breakfast
Cholesterol Lowering
At Your Request: Full Participation
Does patient need a safe tray?: No
Fluid Restriction: 1200 mL/day (40 oz)
Cholesterol Lowering: Sodium, 2 Gram
06/09/24 09:59
CR Chest - 2 Views Urgent
Comment:
Reason For Exam: cough/sob
06/09/24 10:09
Electrocardiogram (*1) Urgent
Reason for Study: Shortness of Breath
EKG- Treatment ONCE
Dexamethasone Sod Phosphate [Decadron] 6 mg IV NOW STA
Ipratropium/Albuterol Sulfate [Duoneb] 3 ml INH R NOW STA
06/09/24 10:14
COVID-19 Antigen Urgent
Source: Nasal Swab
Complete Blood Count/With Diff Urgent
Comprehensive Metabolic Panel Urgent
Ferritin Urgent
Comment: ADD
Iron Urgent
Magnesium Urgent
NT-proBNP Urgent
Total Iron Binding Urgent
Troponin I Urgent
06/09/24 10:15
Apixaban [Eliquis] 2.5 mg PO BID
06/09/24 10:34
Add On- LAB Urgent
Tests Added?: iron, ferritin, tibc
06/09/24 12:28
Furosemide [Lasix] 40 mg IV NOW STA
06/09/24 12:55
Admit/Transfer Patient As Directed
Co-Sign Provider:
Level of Care: Inpatient admission
Assign to:: Telemetry
Physician / Group: leslie
Diagnosis: CHF exacerbation
Reason for Telemetry: Arrhythmia
Date to Stop Telemetry: 06/12/24
Time to Stop Telemetry: 11:00
Reason for Hospitalization: chf exacerbation
Expected length of stay greater than two midnights?: Yes
ELOS- Estimated Length of Stay in days: 3
I certify the patient meets the requirements for IP care: Yes
PRN Pain Medication Management As Directed
May give lesser potent ordered pain med per pt: Yes
preference::
Protocol:: Medication orders for pain may be administered in a
manner that supports deferring to patient preference
when the pt is:
- Requesting an ordered lesser potent pain medication.
Least to most potent pain medications are defined
as: acetaminophen < NSAID < tramadol < opioids
(morphine, oxycodone, hydromorphone).
- Requesting a lesser dose of the same medication IF
ORDERED.
- Requesting a less intrusive route of administration
if both routes are prescribed by the provider (PO <
IV).
06/09/24 12:57
Code Status As Directed
Resuscitation Status: Full Code
06/12/24 11:00
DC Protocol for Telemetry ONCE
Abnormal Lab Results
06/09/24
10:14
RBC 3.41 L 10^6/uL
(4.70-6.10)
Hgb 10.7 L g/dL
(13.0-18.0)
Hct 32.3 L %
(39.0-52.0)
MCV 94.7 H fL
(80.0-94.0)
MCH 31.4 H pg
(27.0-31.0)
RDW 15.0 H %
(11.5-14.5)
Absolute Lymphs (auto) 0.5 L 10^3/uL
(1.2-3.4)
Neutrophils % 81.2 H %
(42.2-75.2)
Lymphocytes % 7.6 L %
(20.5-51.1)
BUN 23 H mg/dl
(9-20)
Glucose 115 H mg/dl
(70-99)
% Saturation 16 L %
(20-50)
Total Bilirubin 1.4 H mg/dl
(0.2-1.3)
06/09/24 10:14
06/09/24 10:14
Vital Signs
Initial and Last Documented VS:
Initial Vital Signs
Temp Pulse Resp BP Pulse Ox
98.7 F 73 18 119/57 93
06/09/24 09:35 06/09/24 09:35 06/09/24 09:35 06/09/24 09:35 06/09/24 09:35
Last Documented Vital Signs
Temp Pulse Resp BP Pulse Ox
98.7 F 77 21 140/70 93
06/09/24 09:35 06/09/24 13:30 06/09/24 13:30 06/09/24 13:00 06/09/24 13:30
MDM/Problems Addressed
MDM/Problems Addressed:
During ambulation ED, patient noted to become mildly hypoxic (88%) with respiratory distress. History and exam, along with chest x-ray consistent with likely mild volume overload, with underlying COPD likely contributing to his presenting symptoms.
As such, patient will be admitted for IV diuresis in continue nebulizer treatment.
*Critical Care Note
Total Time (30-74mins, 75-104mins- exclusive of procedures): Not Applicable
ED Attending Note
-
Portions of this chart may have been created with voice recognition software.� Occasional wrong word or��sound alike� substitutions may have occurred due to the inherent limitations of voice recognition software.
Discharge Plan
Departure
Patient Disposition: Admit
Date of Disposition: 06/09/24
Time of Disposition: 12:31
Admit to: Telemetry
Presentation/result/management discussed w/ accepting MD/DO: Hospitalist
Discharge Problem:
Fluid overload, COPD exacerbation
Interventions
Interventions:
*Risk Screen - Suicide Last Done: 06/09/24 09:35
*General Assessment Last Done: 06/09/24 09:35
*Neglect/Abuse Screening Last Done: 06/09/24 09:35
*ED- Fall Risk Assessment Last Done: 06/09/24 10:15
*ED COVID-19 Vaccine History Last Done: 06/09/24 10:15
ED- Cardiac Assessment Last Done: 06/09/24 10:15
ED- Pulmonary Assessment Last Done: 06/09/24 10:15
[2024-06-09 10:25] LABS: % Basophils 0.1 % (0-2); % Eosinophils 1.6 % (0-6); % Immature Granulocytes 0.3 % (0-0.5); % Lymphocytes 7.6 % (20.5-51.1); % Monocytes 9.2 % (1.7-9.3); % Neutrophils 81.2 % (42.2-75.2); Absolute Eosinophils 0.1 10^3/uL (0-0.7); Absolute Lymphocytes 0.5 10^3/uL (1.2-3.4); Absolute Monocytes 0.6 10^3/uL (0.1-0.6); Absolute Neutrophils 5.6 10^3/uL (1.4-6.5); Hematocrit 32.3 % (39.0-52.0); Hemoglobin 10.7 g/dL (13.0-18.0); Mean Corp Hgb Conc. 33.1 g/dL (33.0-37.0); Mean Corpuscular Hgb 31.4 pg (27.0-31.0); Mean Corpuscular Volume 94.7 fL (80.0-94.0); Mean Platelet Volume 9.6 fL (7.4-10.4); Nucleated Red Blood Cells % 0 % (-); Platelet Count 146 10^3/uL (130-400); Red Blood Cell Count 3.41 10^6/uL (4.70-6.10); White Blood Cell Count 6.9 10^3/uL (4.8-10.8)
[2024-06-09 10:43] LABS: ALT (SGPT) 22 U/L (0-50); AST (SGOT) 26 U/L (17-59); Albumin 4.2 g/dl (3.5-5.0); Alkaline Phosphatase 53 U/L (38-126); Blood Urea Nitrogen 23 mg/dl (9-20); Calcium 9.3 mg/dl (8.4-10.2); Carbon Dioxide 27 mmol/L (22-30); Estimated Creatinine Clearance 63 ml/min; Glucose 115 mg/dl (70-99); Magnesium 2.2 mg/dl (1.6-2.3); Potassium 4.8 mmol/L (3.5-5.1); Sodium 136 mmol/L (135-145); Total Bilirubin 1.4 mg/dl (0.2-1.3); Total Protein 7.2 g/dl (6.3-8.2); eGFR > 60.00
[2024-06-09 10:44] LABS: COVID-19 Antigen Negative (Negative)
[2024-06-09] MEDS: ELIQUIS 2.5 MG PO (10:46)
[2024-06-09] MEDS: DECADRON 6 MG IV (10:47)
[2024-06-09] MEDS: DUONEB 3 ML INH (10:48)
[2024-06-09 10:49] LABS: NT-proBNP 1880 pg/ml; Troponin I 0.016 ng/ml
--- NOTE | 2024-06-09 11:33 | EDRN ---
Pt ambulated from room #19 brant 30 feet to outside of room 18 then back to room. Pre ambulating pt was 92 HR and POX 93% on RA, post walk was HR 102 and SpO2 was 88 on RA.
--- NOTE | 2024-06-09 11:35 | EDRN ---
TT'd ambulatory note to Dr. Nevarez.
[2024-06-09 11:43] LABS: Chloride 102 mmol/L (98-107); Iron 52 ug/dl (49-181)
[2024-06-09 11:53] LABS: Percent Saturation 16 % (20-50); Total Iron Binding Capacity 321 ug/dl (261-462)
--- NOTE | 2024-06-09 12:32 | HPS.HSE ---
Family Physician
-
Family Physician: Vic Shepard
Chief Complaint
-
SOB
History of Present Illness
88-year-old with past medical history for asthma, coronary artery disease, prostate cancer, hypertension, hyperlipidemia, hypothyroidism, radiation cystitis, atrial FaBB status post outpatient elective cardioversion last week, presents to ED
secondary to worsening shortness of breath over the past 2 days, especially with exertion. Patient states that he has had intermittent episodes of shortness of breath for a long period of time. He was not able sleep last night due to sob. denied
cough, runny nose,congestion. denied fever, chills, chest pain. denied ORTIZ,dizzy or syncope.denied abdominal pain,n,nv,d. denied hematuria. his Lasix was changed from every other day to daily last month.noted to have worsening LE edema for past one
week. denied weight gain.
Patient received a dose of Eliquis, dexamethasone, Lasix, nebs in ER. Admitting for further management
Medical History
Past Medical History
Past Medical History: Reports Other
Additional Past Medical History:
Hypertension
Prostate cancer
Hypothyroidism
Hyperlipidemia
Asthma
Squamous cell carcinoma
Colonic polyps
Depression
Fatty liver
Iron deficiency anemia
Coronary artery disease
Radiation proctitis
Interstitial lung disease
Mitral/aortic stenosis
Past Surgical History: Reports Other
Additional Past Surgical History:
Coronary artery bypass graft
Total replacement of right shoulder
Resection urostomy
Carpal tunnel release
Bicep repair
Hernia repair
Tonsillectomy
Orbital atherectomy and stenting of mid RCA lesion
Reverse right shoulder replacement
Left CEA
Social History
Tobacco: Non-smoker
Alcohol: Occasional
Drug: None
Personal:
Living: With Family
Family History
Family History: Not pertinent
Allergies / Home Medications
Allergies reflects when Allergies were last updated in [employer].
Home Medications with original date entered in [employer]
Allergy/Medication List:
Allergies
Allergy/AdvReac Type Severity Reaction Status Date / Time
hydrocodone [From Vicodin] Allergy Unknown Verified 06/09/24 09:34
Fwvwdlr-JBI-MtC Reductase Allergy denies. Verified 06/09/24 09:34
Inhibitor Takes
[Eyxuwdz-Xam-Mys Reductase crestor
Inhibitor]
Home Medications
montelukast 10 mg tablet 10 mg PO DAILY Lung/breathing issues 06/27/17
nitroglycerin 0.4 mg sublingual tablet 0.4 mg sublingual [id number] PRN chest pain #25 tabs 10/05/17
rosuvastatin 20 mg tablet 20 mg PO Q48H High cholesterol 08/13/20
ezetimibe 10 mg tablet 10 mg PO Q48H High cholesterol 01/04/21
furosemide 40 mg tablet 40 mg PO HS Fluid retention/Swelling 01/04/21
metoprolol succinate 25 mg tablet,extended release 24 hr 12.5 mg PO BID Blood pressure 01/04/21
losartan 25 mg tablet 25 mg PO DAILY #30 tabs 01/07/21
ferrous sulfate 325 mg (65 mg iron) tablet (FeroSul) 325 mg PO DAILY #30 tabs 01/15/21
apixaban 2.5 mg tablet (Eliquis) 2.5 mg PO BID 06/09/24
biotin 800 mcg tablet 800 mcg PO DAILY 06/09/24
coenzyme Q10 400 mg capsule 400 mg PO DAILY 06/09/24
cyanocobalamin (vitamin B-12) 5,000 mcg capsule 5,000 mcg PO DAILY 06/09/24
folic acid 800 mcg tablet 800 mcg PO DAILY 06/09/24
levothyroxine 50 mcg tablet 50 mcg PO DAILY 06/09/24
potassium chloride 10 mEq tablet,extended release 5 meq PO Q48H@2200 06/09/24
sertraline 50 mg tablet 50 mg PO DAILY 06/09/24
sertraline 50 mg tablet 50 mg PO DAILYPRN PRN depression 06/09/24
temazepam 15 mg capsule 15 mg PO HS PRN SLEEP 06/09/24
Review of Systems
-
Constitutional: Reports No Symptoms
EENT: Reports No Symptoms
Respiratory: Reports Trouble Breathing
Cardiac: Reports No Symptoms
Abdomen/GI: Reports No Symptoms
: Reports No Symptoms
Musculoskeletal: Reports Edema (Bilateral lower extremity)
Skin: Reports No Symptoms
Neurological: Reports No Symptoms
Endocrine: Reports No Symptoms
Hematologic/Lymphatic: Reports No Symptoms
Psych: Reports No Symptoms
Physical Exam
Vital Signs
Vital Signs
Temp Pulse Resp BP Pulse Ox
98.7 F 79 25 128/93 94
06/09/24 09:35 06/09/24 11:15 06/09/24 11:15 06/09/24 11:00 06/09/24 11:15
Physical Exam
General: Well Developed, Well Nourished and No Apparent Distress
HEENT: NormoCephalic, Moist mucous membranes and Atraumatic
Respiratory: Clear
Cardiac: S1/S2 and Regular Rhythm; No Murmur or Rub
GI: Soft, Non Tender, Non Distended and Normal Bowel Sounds; No Organomegaly
Rectal: Deferred by Provider
Genito-urinary: Other (Urostomy)
Musculoskeletal: No Clubbing, No Cyanosis and Other (Bilateral lower extremities)
Skin: No Rash
Neuro: AO x 3 and Nonfocal/grossly intact
Psych: Calm
Laboratory Results
-
06/09/24 10:14
06/09/24 10:14
Laboratory Results
Total Bilirubin 1.4 mg/dl (0.2-1.3) H 06/09/24 10:14
AST 26 U/L (17-59) 06/09/24 10:14
ALT 22 U/L (0-50) 06/09/24 10:14
Alkaline Phosphatase 53 U/L (38-126) 06/09/24 10:14
Troponin I 0.016 ng/ml 06/09/24 10:14
Data Reviewed
-
Diagnostic Radiology: Report Reviewed by me
Lab Data: Labs Reviewed by me
Impression/Plan
-
# Short of breath multifactorial
-Consider supplemental oxygen to keep sat greater than 92
-Wean as tolerated
-COVID, flu negative
-Chest x-ray with impression of moderate acute interstitial [place] cardiogenic pulmonary edema. Small bilateral pleural effusion
# CHF exacerbation
-BNP 1879
-Fluid restriction, daily weight,
-IV diuretics continued
-strict DOMENIC
-Cardiology consulted
-Echocardiogram 12/2022 with impression of EF of 65 to 70%
# History of asthma
-Patient received a dose of Decadron in the ER
-Singular continued
-not in acute exacerbation
-defer steroids at this time
# Anemia of iron deficiency
-Hemoglobin stable at 10.7
-No active bleed
From continue to monitor
-Ferrous sulfate continue
# History of depression
-sertraline continued
-Temazepam continued for sleep
# History of Prostate Cancer s/p XRT x 40 sessions 2014
# History of radiation cystitis
-Urostomy in place
# History of CABG x 3, PTCA with stent, L CEA
c/w MALTED MILK SUPERVISOR statin
# Essential Hypertension, stable.
-c/w MALTED MILK SUPERVISOR Toprol
- losartan continued
# Hypothyroidism
-Continue outpatient T4 supplementation.
# History of A-fib
-Post cardioversion last week
-Eliquis, metoprolol continued
DVT Prophylaxis: Eliquis
Code Status: Full code
-
--- NOTE | 2024-06-09 12:46 | EDRN ---
Daniel Leger SUPERVISOR [employer]ARMENT in to see pt at this time.
--- NOTE | 2024-06-09 12:48 | EDRN ---
Dr. Nevarez in to see pt at th time,.
[2024-06-09] MEDS: LASIX 40 MG IV (12:49)
--- NOTE | 2024-06-09 13:07 | W.PN.UPDATE ---
Update Note
Progress Note Update
This is an addendum to the H&P written by Khadijah Leger on 06/09/2024.� Patient seen and examined independently with LICENSED LOAN OFFICER ASSISTANT.
88-year-old male past medical history of CAD status post CABG, paroxysmal atrial fibrillation on Eliquis, carotid stenosis, essential hypertension, prostate cancer status post radiation, anemia, hypothyroidism, hyperlipidemia, depression, iron
deficiency anemia, presenting with shortness of breath with exertion and increased lower extreme edema.� No weight gain.� No cough.
Chest x-ray shows moderate acute interstitial and alveolar cardiogenic pulmonary edema, small bilateral pleural effusions.� Cardiac BNP of 1880.
Presentation consistent with acute HFpEF exacerbation.
Patient given dexamethasone and DuoNebs in ER.
Lasix 40 IV daily.� Cardiology.
--- NOTE | 2024-06-09 13:10 | EDRN ---
Pt administered boxed lunch at this time.
--- NOTE | 2024-06-09 13:42 | EDRN ---
Urostomy adapter received and urostomy back hooked up to drainage bag. Dilma LEATHER COATER w/ cardiology in room w/ pt at this time.
--- NOTE | 2024-06-09 13:55 | CON.CAR ---
Addendum entered and electronically signed by Jacky Salinas MD 06/09/24 17:11:
I saw and examined the patient.
The VP & GENERAL COUNSEL's note was reviewed and I agree with the note.
Comment: He will benefit from additional heart failure education. We provided and heart failure education has already been ordered. Agree with IV diuresis. We will see if we can add/adjust GDMT while here. He is for an echo last in Dec 2022 was
good (normal LV/RV and no signif valve disease.
Original Note:
Consultation
Consultation Request
Date/Time Consultation Requested: 06/09/24 1p
Date/Time Consultation Performed: 06/09/24 1:30p
Requesting Provider: TIMBO Noble
Performing Provider: TIMBO Ragsdale for Dr. Salinas
Reason for Consultation: acute HFpEF
Medical History
-
Chief Complaint: SOB
History of Present Illness:
Mr. Han is an 88 yo male with HFpEF, paroxysmal Afib on Eliquis (s/p DCCV 06/06/23), CAD s/p CABG 05/2017 and PCI to LAD, LCx and RCA 08/2017, HTN, HLD, PAD s/p left CEA, asthma, prostate cancer, resection and urostomy 2020, moderate MS and CKD3b, who
presents to the ER with c/o increased SOB and HOPPER for 2 days. Last night he c/o PND/orthopnea while trying to sleep in his recliner chair. CXR showed small b/l pleural effusions and pulmonary edema, proBNP 1880. He received IV Lasix in the ER and
he reports feeling better. He is admitted to the hospitalist service and we are consulted for acute HFpEF. He does not weigh himself at home and admits to increased LE edema today. He reports compliance with Lasix 40mg daily, QHS. Tele and EKG
show NSR with PACs. S/p cardioversion 06/05/24 and in NSR, he reports compliance with Eliquis 2.5mg BID.
Past Medical History
Past Medical History: Other (as above)
Past Surgical History: Cardiac (CABG 2017), Orthopedic (reverse shoulder replacement right 12/2019 ), Tonsilectomy, Urological (resection and urosteomy 12/2020) and Other (left CEA)
Social History
Tobacco: Non-Smoker
Alcohol: None
Personal:
Living: With Family
Employment: Retired
Family History
Family History: Reviewed & Not Pertinent
Allergies / Home Medications
Allergy/AdvReac Type Severity Reaction Status Date / Time
hydrocodone [From Vicodin] Allergy Unknown Verified 06/09/24 09:34
Nspucjj-BJT-EpJ Reductase Allergy denies. Verified 06/09/24 09:34
Inhibitor Takes
[Vhmqdkj-Xja-Smt Reductase crestor
Inhibitor]
�Medication �Instructions �Recorded �Confirmed �Type
montelukast 10 mg tablet 10 mg PO DAILY Lung/breathing 06/27/17 06/09/24 History
issues
nitroglycerin 0.4 mg sublingual 0.4 mg sublingual [id number] PRN 10/05/17 06/09/24 Rx
tablet chest pain #25 tabs
rosuvastatin 20 mg tablet 20 mg PO Q48H High cholesterol 08/13/20 06/09/24 History
ezetimibe 10 mg tablet 10 mg PO Q48H High cholesterol 01/04/21 06/09/24 History
furosemide 40 mg tablet 40 mg PO HS Fluid 01/04/21 06/09/24 History
retention/Swelling
metoprolol succinate 25 mg 12.5 mg PO BID Blood pressure 01/04/21 06/09/24 History
tablet,extended release 24 hr
losartan 25 mg tablet 25 mg PO DAILY #30 tabs 01/07/21 06/09/24 Rx
ferrous sulfate 325 mg (65 mg 325 mg PO DAILY #30 tabs 01/15/21 06/09/24 Rx
iron) tablet (FeroSul)
apixaban 2.5 mg tablet (Eliquis) 2.5 mg PO BID 06/09/24 06/09/24 History
biotin 800 mcg tablet 800 mcg PO DAILY 06/09/24 06/09/24 History
coenzyme Q10 400 mg capsule 400 mg PO DAILY 06/09/24 06/09/24 History
cyanocobalamin (vitamin B-12) 5,000 mcg PO DAILY 06/09/24 06/09/24 History
5,000 mcg capsule
folic acid 800 mcg tablet 800 mcg PO DAILY 06/09/24 06/09/24 History
levothyroxine 50 mcg tablet 50 mcg PO DAILY 06/09/24 06/09/24 History
potassium chloride 10 mEq 5 meq PO Q48H@2200 06/09/24 06/09/24 History
tablet,extended release
sertraline 50 mg tablet 50 mg PO DAILY 06/09/24 06/09/24 History
sertraline 50 mg tablet 50 mg PO DAILYPRN PRN depression 06/09/24 06/09/24 History
temazepam 15 mg capsule 15 mg PO HS PRN SLEEP 06/09/24 06/09/24 History
Review of Systems
-
History Source: Patient
All other systems: Negative unless noted
Physical Exam
Vital Signs
Temp Pulse Resp BP Pulse Ox
98.7 F 77 21 140/70 93
06/09/24 09:35 06/09/24 13:30 06/09/24 13:30 06/09/24 13:00 06/09/24 13:30
Lab Results
06/09/24 10:14
06/09/24 10:14
Troponin I 0.016 ng/ml 06/09/24 10:14
Hny-A-Wwcnyyaaqix Pept 1880 pg/ml 06/09/24 10:14
Physical Exam
General: Well Developed, Well Nourished and No Apparent Distress
HEENT: Normocephalic, Anicteric and Moist Mucous Membranes
Respiratory: Wheezes (very fine expiratory diffuse base), Crackles (bibasilar) and Non Labored Respirations
Cardiac: S1/S2, Regular Rhythm and Peripheral Edema (mild b/l LE)
Breast: Deferred by me
GI: Soft, Non Tender, Non Distended and Normal Bowel Sounds
Rectal: Deferred by Provider
Genito-urinary: Clear Urine
Musculoskeletal: No Cyanosis
Skin: Warm and Dry
Neuro: AO x 3
Hematologic/Lymphatic: No Lymphadenopathy
Psych: Calm
Impression / Plan
-
HFpEF - acute on chronic.
- agree with IV Lasix 40mg.
- monitor daily weights, I&Os.
- follow BMP.
- check echo.
Afib - paroxysmal.
- s/p DCCV 06/05/24, in NSR.
- Eliquis 2.5mg BID, but now creatinine is normal at 1.0 so will change dose to 5mg BID and monitor renal function closely with diuresis.
CAD - s/p CABG and PCI 2017.
- stable w/o angina.
- continue medical therapy.
HLD - stable on Zetia/Crestor every other day.
PAD - stable.
- left CEA 03/2020.
- continue ASA, Zetia/Crestor.
Data Reviewed
-
EKG: Tracing Personally Visualized and interpreted (SR with PACs 70 bpm)
Radiology: Report Reviewed by me (CXR: moderate acute interstitial and alveolar cardiogenic pulmonary edema, small bilateral pleural effusions.)
Medical Tests (Nuc Med, Echo etc): Report Reviewed by me (echo 12/2022: LVEF 65-70%, mild LVH, mild , mild MS.)
Labs: Labs Reviewed by me
Old Records: Reviewed
[2024-06-09] MEDS: ZETIA 10 MG PO (15:34)
[2024-06-09] MEDS: CRESTOR 20 MG PO (15:34)
[2024-06-09] MEDS: ELIQUIS 5 MG PO (20:52)
[2024-06-09] MEDS: TOPROL XL 12.5 MG PO (20:53)
[2024-06-09] MEDS: KCL 5 MEQ PO (20:55)
[2024-06-10] MEDS: RESTORIL 15 MG PO (01:00)
[2024-06-10 03:00] VITALS: BP 141/76
[2024-06-10 05:01] VITALS: BMI 31.4
[2024-06-10] MEDS: SYNTHROID 50 MCG PO (06:21)
[2024-06-10 06:35] LABS: % Immature Granulocytes 0.3 % (0-0.5); % Monocytes 5.2 % (1.7-9.3); % Neutrophils 89.5 % (42.2-75.2); Absolute Lymphocytes 0.5 10^3/uL (1.2-3.4); Absolute Monocytes 0.5 10^3/uL (0.1-0.6); Absolute Neutrophils 8.6 10^3/uL (1.4-6.5); Hematocrit 31.5 % (39.0-52.0); Hemoglobin 10.8 g/dL (13.0-18.0); Mean Corp Hgb Conc. 34.3 g/dL (33.0-37.0); Mean Corpuscular Hgb 31.9 pg (27.0-31.0); Mean Corpuscular Volume 92.9 fL (80.0-94.0); Mean Platelet Volume 9.7 fL (7.4-10.4); Nucleated Red Blood Cells % 0 % (-); Platelet Count 153 10^3/uL (130-400); Red Blood Cell Count 3.39 10^6/uL (4.70-6.10); Red Cell Dist. Width 14.6 % (11.5-14.5); White Blood Cell Count 9.6 10^3/uL (4.8-10.8)
[2024-06-10 07:05] LABS: Blood Urea Nitrogen 33 mg/dl (9-20); Calcium 9.5 mg/dl (8.4-10.2); Carbon Dioxide 27 mmol/L (22-30); Chloride 102 mmol/L (98-107); Estimated Creatinine Clearance 57 ml/min; Glucose 135 mg/dl (70-99); HDL Cholesterol 42 mg/dl; LDL Cholesterol, Calculated 78 mg/dl; Magnesium 2.3 mg/dl (1.6-2.3); Potassium 4.5 mmol/L (3.5-5.1); Sodium 139 mmol/L (135-145); Total Cholesterol 140 mg/dl (50-199); Triglyceride 101 mg/dl (10-149); Very Low Density Lipoprotein 20 mg/dl (0-30); eGFR > 60.00
[2024-06-10 07:22] VITALS: BP 147/71
[2024-06-10 07:28] LABS: TSH Reflex To Free T4 1.73 uIU/ml (0.47-4.68)
--- NOTE | 2024-06-10 07:44 | W.PN.CD ---
Today's Communication / Plan
-
echo today
add spirnolactone 12.5mg po daily
check labs in 1 and 2 weeks
if echo ok, would discharge on spironolactone and furosemide 40mg daily
chf team consult for more education prior to discharge
discussed 2g sodium restriction and 50oz fluid
Impression / Plan
-
HFpEF - acute on chronic.
-improved
- agree with IV Lasix 40mg this am
-transition furosemide 40po daily for discharge.
-chf team consults
-will add spironolactone 12.5mg po daily
-will need labs in 1 week.
-chronic urostomy, will hold off on [id number] right now.
- monitor daily weights, I&Os.
- follow BMP.
- check echo.
Afib - paroxysmal.
- s/p DCCV 06/05/24, in NSR.
- Eliquis 2.5mg BID, but now creatinine is normal at 1.0 so will change dose to 5mg BID and monitor renal function closely with diuresis.
CAD - s/p CABG and PCI 2017.
- stable w/o angina.
- continue medical therapy.
HLD - stable on Zetia/Crestor every other day.
PAD - stable.
- left CEA 03/2020.
- continue ASA, Zetia/Crestor.
Subjective:
He is feeling great! he is motivated to change his lifestyle.
Physical Exam
Vital Signs/Labs
Vital Signs
Temp Pulse Resp BP Pulse Ox
98.3 F 72 18 147/71 98
06/10/24 07:22 06/10/24 07:22 06/10/24 07:22 06/10/24 07:22 06/10/24 07:22
06/09/24 06/10/24 06/11/24
06:59 06:59 06:59
Actual Weight 100.499 kg
06/10/24 06:25
06/10/24 06:25
Magnesium 2.3 mg/dl (1.6-2.3) 06/10/24 06:25
Triglycerides 101 mg/dl (10-149) 06/10/24 06:25
LDL Cholesterol, Calc 78 mg/dl 06/10/24 06:25
VLDL Cholesterol, Calc 20 mg/dl (0-30) 06/10/24 06:25
HDL Cholesterol 42 mg/dl 06/10/24 06:25
06/09/24
10:14
Ajo-R-Xogoerhxapj Pept 1880
LAB Results
06/09/24
10:14
Troponin I 0.016
Physical Exam
Constitutional: No acute distress
Cardiovascular: Rhythm & rate is regular, Pedal edema is absent, Pedal edema present (trace bl) and JVD present (11cm at the clavical at 90)
Respiratory: Respiratory effort normal, Wheeze Absent, Rhonchi Absent and Crackles Present (fine bibasilar)
Neuro/Psych: AO x 3
Data Reviewed
-
Date of Service: June 10, 2024
EKG: Other (tele sinus with brief psvt, no af)
[2024-06-10 07:45] VITALS: BMI 31.4
--- NOTE | 2024-06-10 08:00 | W.PN.HOSP.TC ---
Today's Communication/Plan
-
Discharge today
Assessment / Plan
Assessment / Plan
Physical Exam
General: Well Developed, Well Nourished and No Apparent Distress
HEENT: Normocephalic, Moist mucous membranes
Respiratory: Faint crackles bilaterally
Cardiac: S1/S2 and Regular Rate and Rhythm
GI: Soft, Non Tender, Non Distended and Normal Bowel Sounds
Genito-urinary: Other (Urostomy)
Musculoskeletal: No Cyanosis. Trace bilateral lower extremity edema
Skin: Warm. Dry.
Neuro: AAO x 3 and Nonfocal/grossly intact
Psych: Calm
Assessment/Plan
88-year-old with past medical history for asthma, paroxysmal atrial fibrillation on Eliquis, coronary artery disease status post CABG, carotid stenosis, prostate cancer status post radiation, essential hypertension, hyperlipidemia, hypothyroidism,
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
exertion. Patient states that he has had intermittent episodes of shortness of breath for a long period of time. He was not able sleep due to sob.
# Shortness of breath secondary to acute on chronic heart failure with preserved ejection fraction
# Acute on chronic heart failure with preserved ejection fraction
-BNP 188
-Fluid restriction, daily weight,
-IV diuretics given with improvement in weight and symptoms
-On discharge: Furosemide 40 mg daily, Spironolactone 12.5 mg po daily
-No SGLT2i for now in the setting of chronic urostomy
-Cardiology consulted
-Echocardiogram 12/2022 with impression of EF of 65 to 70%
-Echo this admission: Left ventricular ejection fraction is 65-70%. Normal regional wall motion. Normal right ventricular size and function. Severely dilated left atrium. Moderate mitral stenosis; peak/mean gradient 20/6 mmHg. Mild aortic stenosis;
peak/
mean gradients 21/11 mmHg, calculated PRASHANTH 1.8 cm2. Mild to moderate tricuspid regurgitation. Estimated pulmonary artery pressure of 60-65 mmHg. Compared to previous echo on 12/22/2022, mitral stenosis is now present.
-Labs: BMP and Magnesium in 1 week and 2 weeks from now
-PO diet restrictions: 2 g sodium restriction and 50 oz fluid
# History of asthma
-Patient received a dose of Decadron in the ER
-Singular continued
-not in acute exacerbation
-defer steroids at this time
# Anemia of iron deficiency
-Hemoglobin stable around ~10.7
-No active bleed
From continue to monitor
-Ferrous sulfate continue
# History of depression
-sertraline continued
-Temazepam continued for sleep
# History of Prostate Cancer s/p XRT x 40 sessions 2014
# History of radiation cystitis
-Urostomy in place
# CAD - s/p CABG and PCI 2017
c/w [employer] SUPER[employer] 2ND SHIFT statin
#PAD - left CEA 03/2020.
- Stable
- Continue ASA, Zetia/Crestor.
# Essential Hypertension, stable.
-c/w [employer]ATIONS SUPER[employer] 2ND SHIFT Toprol
- losartan continued
# Hypothyroidism
-Continue outpatient T4 supplementation.
# Paroxysmal Atrial Fibrillation status post DCCV 06/05/24, in [facility]
-Post cardioversion last week
-Eliquis, metoprolol continued -- Eliquis increased to 5 mg BID on discharge due to improvement in renal function
# Hyperlipidemia
-Continue Zetia/Crestor every other day
DVT Prophylaxis: Eliquis
Code Status: Full code
More than 30 minutes spent in discharge including
Final examination of the patient
Summarizing hospital stay
Instructions for continuing care to all relevant caregivers
Preparation of discharge records, prescriptions, and referral forms
Total time spent (in minutes): 38
Anticipated Discharge: Today
Subjective/Interval History
-
Date of Service: June 10, 2024
Patient was seen and examined. He denied any chest pain or shortness of breath.
Objective Data
-
Labs:
Laboratory Results
06/10/24
06:25
WBC 9.6
Hgb 10.8 L
Hct 31.5 L
Plt Count 153
Sodium 139
Potassium 4.5
Chloride 102
Carbon Dioxide 27
BUN 33 H
Creatinine 1.1
Glucose 135 H
Calcium 9.5
Vital Signs:
Vital Signs
Temp Pulse Resp BP Pulse Ox
98.3 F 72 18 147/71 98
06/10/24 07:22 06/10/24 07:22 06/10/24 07:22 06/10/24 07:22 06/10/24 07:22
I&O
06/09/24 06/10/24 06/11/24
06:59 06:59 06:59
Intake Total 960 / 960
Output Total 3250 / 3250
Balance -2290 / -2290
--- NOTE | 2024-06-10 08:52 | CARDSERVLU ---
Echocardiogram with [facility] completed after protocol screening completed. Allergies verified.
Patent IV site: _Right arm 20 G PC site clear____
IV site flushed with 0.9% NaCl pre and post administration.
Diluted bolus method utilized to enhance visualization of ventricular clay.
Total volume given: __3__ mL
Patient tolerated all procedures well without complications.
[2024-06-10] MEDS: VITAMIN B-12 5000 MCG PO (10:08)
[2024-06-10] MEDS: LASIX 40 MG IV (10:08)
[2024-06-10] MEDS: COZAAR 25 MG PO (10:09)
[2024-06-10] MEDS: TOPROL XL 12.5 MG PO (10:09)
[2024-06-10] MEDS: FOLVITE 0.8 MG PO (10:09)
[2024-06-10] MEDS: ELIQUIS 5 MG PO (10:10)
[2024-06-10] MEDS: SINGULAIR 10 MG PO (10:11)
[2024-06-10] MEDS: FEOSOL 325 MG PO (10:12)
[2024-06-10] MEDS: ZOLOFT 50 MG PO (10:12)
--- NOTE | 2024-06-10 11:08 | CM ---
Addendum entered by Carolina Oneal 06/10/24 15:09:
Patient for d/c today.
IMM verbally reviewed, patient given copy, copy placed in chart
Original Note:
Patient seen bedside w/ daughterKaterina. Initial assessment completed. 88-year-old with past medical history for asthma, coronary artery disease, prostate cancer, hypertension, hyperlipidemia, hypothyroidism, radiation cystitis, atrial FaBB status
post outpatient elective cardioversion last week, presents to ED secondary to worsening shortness of breath over the past 2 days, especially with exertion.
Patient reports that he lives w/ spouse in [facility]- 2 steps to enter. Independent w/ ambulating and ADLs. Has shower chair and grab bars in the home. Denies SNF hx, OP therapy in the past. [facility].
Address, points of contact and insurance verified
PCP: Vic Shepard
Pharmacy: [facility]
Per chart, if patient's echo is ok, can d/c home
Plan: Home; no needs
[2024-06-10 11:27] VITALS: BP 121/66
[2024-06-10 15:09] VITALS: BP 138/59
--- NOTE | 2024-06-11 10:47 | W.HF.CON ---
Heart Failure
- LV Function
Left ventricular function study result: LV Ejection fraction >/= 50%
Ejection Fraction Percentage: 65-70
- ARNI
Patient already on ARNI: No
Heart Failure ARNI Not Indicated: LV Ejection Fraction >/= 40%
- ACEI/ARB
Patient already on ACEI/ARB: Yes
- Beta Blessing
Patient already on Evidence Based Beta Blessing: Yes
- Mineralocorticord Receptor Antagonist
Patient already on MRA: Yes
- SGLT-2 Inhibitor
Patient already on SGLT-2 Inhibitor: No
Heart Failure SGLT-2 Inhibitor Not Indicated: LV Ejection Fraction >40%
- Afib Anticoagulation
Patient already on Anticoagulation for Afib: Yes
- NYHA CHF Classification
NYHA CHF Classification Level: Class III - Symptoms w/ min exertion, interferes w/ nml daily activity
- ACC/AHA Stage
ACC/AHA Stage: Stage C: Symptomatic Heart Failure
== END 2024-06-10 16:42 | disposition home or self-care (01) | DRG 291 ==
LOC: 4 WEST ACU 13:14
PROVIDERS: Registered Nurse; ADMITTING PHYSICIAN Hospitalist; ATTENDING PHYSICIAN Hospitalist; CONSULT PHYSICIAN Internal Medicine Cardiovascular Disease; EMERGENCY PHYSICIAN Emergency Medicine; FAMILY PHYSICIAN Family Medicine
DX: I13.0 Hypertensive heart and chronic kidney disease with heart failure and stage 1 through stage 4 chronic kidney disease, or unspecified chronic kidney disease (principal); I50.33 Acute on chronic diastolic (congestive) heart failure; J84.9 Interstitial pulmonary disease, unspecified; N18.32 Chronic kidney disease, stage 3b; D50.9 Iron deficiency anemia, unspecified; F32.A Depression, unspecified; Z92.3 Personal history of irradiation; Z85.46 Personal history of malignant neoplasm of prostate; I25.10 Atherosclerotic heart disease of native coronary artery without angina pectoris; Z95.1 Presence of aortocoronary bypass graft; I73.9 Peripheral vascular disease, unspecified; E03.9 Hypothyroidism, unspecified; Z79.01 Long term (current) use of anticoagulants; I48.0 Paroxysmal atrial fibrillation; E78.00 Pure hypercholesterolemia, unspecified; Z86.0100 Personal history of colon polyps, unspecified; K76.0 Fatty (change of) liver, not elsewhere classified; I08.3 Combined rheumatic disorders of mitral, aortic and tricuspid valves; Z79.890 Hormone replacement therapy; Z96.611 Presence of right artificial shoulder joint; J45.909 Unspecified asthma, uncomplicated; Z79.899 Other long term (current) drug therapy; Z93.6 Other artificial openings of urinary tract status; Z95.5 Presence of coronary angioplasty implant and graft; Z11.52 Encounter for screening for COVID-19
CPT/HCPCS: 71046; 80048; 80053; 80061; 82728; 83540; 83550; 83735; 83880; 84443; 84484; 85025; 87811; 93005; 93306; 94640; 96374; 96375; 99285; Q9950

== ENCOUNTER → 2024-06-13 10:03 | Outpatient (REF) | payer MEDICARE, OTHER, SELFPAY ==
[2024-06-13 11:44] LABS: Blood Urea Nitrogen 42 mg/dl (9-20); Calcium 9.4 mg/dl (8.4-10.2); Carbon Dioxide 27 mmol/L (22-30); Chloride 100 mmol/L (98-107); Glucose 94 mg/dl (70-99); Potassium 4.2 mmol/L (3.5-5.1); Sodium 140 mmol/L (135-145); eGFR 58.53
== END ==
LOC: REG 10:03
PROVIDERS: ATTENDING PHYSICIAN Internal Medicine Cardiovascular Disease; FAMILY PHYSICIAN Family Medicine
DX: I50.32 Chronic diastolic (congestive) heart failure (principal)
CPT/HCPCS: 36415; 80048

== ENCOUNTER 2024-06-23 13:12 | Outpatient (RCR) | payer MEDICARE, OTHER, SELFPAY ==
[2024-06-23 12:05] LABS: % Eosinophils 2.4 % (0-6); % Immature Granulocytes 0.2 % (0-0.5); % Lymphocytes 16.1 % (20.5-51.1); % Monocytes 6.7 % (1.7-9.3); % Neutrophils 74.6 % (42.2-75.2); Absolute Eosinophils 0.2 10^3/uL (0-0.7); Absolute Monocytes 0.4 10^3/uL (0.1-0.6); Absolute Neutrophils 4.6 10^3/uL (1.4-6.5); Hematocrit 35.6 % (39.0-52.0); Hemoglobin 11.9 g/dL (13.0-18.0); Mean Corp Hgb Conc. 33.4 g/dL (33.0-37.0); Mean Corpuscular Hgb 31.7 pg (27.0-31.0); Mean Corpuscular Volume 94.9 fL (80.0-94.0); Mean Platelet Volume 9.5 fL (7.4-10.4); Platelet Count 191 10^3/uL (130-400); Red Blood Cell Count 3.75 10^6/uL (4.70-6.10); Red Cell Dist. Width 14.6 % (11.5-14.5); White Blood Cell Count 6.2 10^3/uL (4.8-10.8)
== END 2024-07-16 23:59 | disposition home or self-care (01) ==
LOC: OID 13:12
PROVIDERS: ATTENDING PHYSICIAN Internal Medicine Hematology & Oncology
DX: D50.8 Other iron deficiency anemias (principal); D46.9 Myelodysplastic syndrome, unspecified; Z85.46 Personal history of malignant neoplasm of prostate
CPT/HCPCS: 85025

== ENCOUNTER → 2024-07-01 10:22 | Emergency (ER) | payer MEDICARE, OTHER, SELFPAY ==
[2024-07-01 10:24] VITALS: BP 124/94
[2024-07-01 10:50] LABS: % Basophils 0.4 % (0-2); % Eosinophils 3.9 % (0-6); % Immature Granulocytes 0.2 % (0-0.5); % Lymphocytes 15.4 % (20.5-51.1); % Monocytes 9.3 % (1.7-9.3); % Neutrophils 70.8 % (42.2-75.2); Absolute Eosinophils 0.2 10^3/uL (0-0.7); Absolute Lymphocytes 0.8 10^3/uL (1.2-3.4); Absolute Monocytes 0.5 10^3/uL (0.1-0.6); Absolute Neutrophils 3.6 10^3/uL (1.4-6.5); Hematocrit 32.7 % (39.0-52.0); Hemoglobin 11.1 g/dL (13.0-18.0); Mean Corp Hgb Conc. 33.9 g/dL (33.0-37.0); Mean Corpuscular Hgb 32.1 pg (27.0-31.0); Mean Corpuscular Volume 94.5 fL (80.0-94.0); Mean Platelet Volume 9.8 fL (7.4-10.4); Nucleated Red Blood Cells % 0 % (-); Platelet Count 141 10^3/uL (130-400); Red Blood Cell Count 3.46 10^6/uL (4.70-6.10); Red Cell Dist. Width 15.1 % (11.5-14.5); White Blood Cell Count 5.1 10^3/uL (4.8-10.8)
--- NOTE | 2024-07-01 11:14 | ED.GENMED ---
History of Present Illness
<Alisson Villegas MD, Resident - Last Filed: 07/01/24 12:47>
General
Chief Complaint: Cough
Time Seen by Provider: 07/01/24 11:11
History of Present Illness
History of Present Illness:
This is an 88-year-old male with past medical history of paroxysmal A-fib on Eliquis, COPD who presents to the ED after an episode of coughing up blood this morning. Patient reports he went for dental cleaning yesterday and had an episode of bright
red blood coming out from his mouth. Patient states overnight he was coughing up bright red blood in his sputum that he cannot quantify. He denies vomiting blood. He denies fever, chills, night sweats. He denies chest pain, weight loss, loss of
appetite, recent travel. No sick contacts.
Past History
<Alisson Villegas MD, Resident - Last Filed: 07/01/24 12:47>
Past History
ED Past Medical History: Asthma, CAD, Cancer, HTN, Hypercholesterolemia, Hypothyroidism and Other
ED Past Surgical History: Cardiac (CABG, Stents X 3)
Social History
Tobacco: Non-smoker
Alcohol: Occasional
Drug: None
Personal:
Living: with family
Employment: Retired
Phy Exam
<Alisson Villegas MD, Resident - Last Filed: 07/01/24 12:47>
General Physical Exam
General Presentation: well appearing and no apparent distress
General Skin: warm and dry
General Mental: alert
ENT Exam
ENT Exam: other (Visible bleeding noted at the completion of the right lower molar. No lacerations or ulcers on the tongue. No mucosal abrasion or evidence of trauma to the mucosa. Oropharynx clear without erythema or exudates.)
Cardiovascular Exam
Cardiovascular Exam: regular rate/rhythm and no edema
Pulmonary Exam
Pulmonary Exam: lungs clear and no respiratory distress
Neurological Exam
Neurological Exam: alert and oriented x3
Musculoskeletal Exam
Musculoskeletal Exam: full ROM
Psychiatric Exam
Psychiatric Exam: normal mood/affect
Course
<Alisson Villegas MD, Resident - Last Filed: 07/01/24 12:47>
Orders/Labs/Results
Orders:
Orders
07/01/24 10:37
Complete Blood Count/With Diff Urgent
Comprehensive Metabolic Panel Urgent
07/01/24 11:48
Tranexamic Acid 1,000 mg .ROUTE .STK-MED ONE
Abnormal Lab Results
07/01/24
10:37
RBC 3.46 L 10^6/uL
(4.70-6.10)
Hgb 11.1 L g/dL
(13.0-18.0)
Hct 32.7 L %
(39.0-52.0)
MCV 94.5 H fL
(80.0-94.0)
MCH 32.1 H pg
(27.0-31.0)
RDW 15.1 H %
(11.5-14.5)
Absolute Lymphs (auto) 0.8 L 10^3/uL
(1.2-3.4)
Lymphocytes % 15.4 L %
(20.5-51.1)
BUN 46 H mg/dl
(9-20)
Creatinine 1.4 H mg/dL
(0.7-1.3)
Glucose 124 H mg/dl
(70-99)
07/01/24 10:37
07/01/24 10:37
Vital Signs
Initial and Last Documented VS:
Initial Vital Signs
Temp Pulse Resp BP Pulse Ox
97.7 F 64 18 124/94 96
07/01/24 10:24 07/01/24 10:24 07/01/24 10:24 07/01/24 10:24 07/01/24 10:24
Last Documented Vital Signs
Temp Pulse Resp BP Pulse Ox
97.7 F 64 18 124/94 96
07/01/24 10:24 07/01/24 10:24 07/01/24 10:24 07/01/24 10:24 07/01/24 10:24
<Jean Claude Atkins, DO - Last Filed: 07/01/24 12:44>
Orders/Labs/Results
Orders:
Orders
07/01/24 10:37
Complete Blood Count/With Diff Urgent
Comprehensive Metabolic Panel Urgent
07/01/24 11:48
Tranexamic Acid 1,000 mg .ROUTE .STK-MED ONE
Abnormal Lab Results
07/01/24
10:37
RBC 3.46 L 10^6/uL
(4.70-6.10)
Hgb 11.1 L g/dL
(13.0-18.0)
Hct 32.7 L %
(39.0-52.0)
MCV 94.5 H fL
(80.0-94.0)
MCH 32.1 H pg
(27.0-31.0)
RDW 15.1 H %
(11.5-14.5)
Absolute Lymphs (auto) 0.8 L 10^3/uL
(1.2-3.4)
Lymphocytes % 15.4 L %
(20.5-51.1)
BUN 46 H mg/dl
(9-20)
Creatinine 1.4 H mg/dL
(0.7-1.3)
Glucose 124 H mg/dl
(70-99)
07/01/24 10:37
07/01/24 10:37
Vital Signs
Initial and Last Documented VS:
Initial Vital Signs
Temp Pulse Resp BP Pulse Ox
97.7 F 64 18 124/94 96
07/01/24 10:24 07/01/24 10:24 07/01/24 10:24 07/01/24 10:24 07/01/24 10:24
Last Documented Vital Signs
Temp Pulse Resp BP Pulse Ox
97.7 F 64 18 124/94 96
07/01/24 10:24 07/01/24 10:24 07/01/24 10:24 07/01/24 10:24 07/01/24 10:24
<Alisson Villegas MD, Resident - Last Filed: 07/01/24 12:47>
MDM/Problems Addressed
MDM/Problems Addressed:
88-year-old male presents to the ED after episode of coughing up bright red blood. Nontoxic-appearing, in no respiratory distress. Bleeding noted in right lower molar. Etiology likely postprocedure gingival bleeding. Will clean up gum and apply
TXA soaked gauze to area.
Update; Evaluated gum a few minutes after application of TXA. Bleeding has improved. Will discharge home.
<Alisson Villegas MD, Resident - Last Filed: 07/01/24 12:47>
*Critical Care Note
Total Time (30-74mins, 75-104mins- exclusive of procedures): Not Applicable
ED Attending Note
<Alisson Villegas MD, Resident - Last Filed: 07/01/24 12:47>
-
Portions of this chart may have been created with voice recognition software.� Occasional wrong word or��sound alike� substitutions may have occurred due to the inherent limitations of voice recognition software.
<Jean Claude Atkins, DO - Last Filed: 07/01/24 12:44>
ED Attending Note
Patient seen and examined by attending physician: Yes
I performed a history and physical exam of patient and discussed management with resident, I reviewed resident's note and agree with documented findings and plan of care.: Yes
ED Attending Note:
I have seen and evaluated the patient with a [id number] encounter. I have spoken to the resident and involved in the medical history, the physical exam, medical decision making.
Evaluation and management service: agree unless noted differently below.
Results interpretation: agree unless noted differently below.
Focused HPI: 88-year-old male presenting with hemoptysis. Patient states he woke up coughing up bright red blood. Of note, he just had recent dental procedure and has been persistently on Eliquis
Physical exam: Mildly oozing right lower molars. Lungs clear
Medical Decision Making: Given the active dental bleeding while on Eliquis, patient is likely aspirating the blood with is causing the hemoptysis. Doubt PE given current Eliquis use.
We had the patient rinse out his mouth with water. This exposed the right lower molar with mild bleeding. TXA soaked gauze placed
After TXA, bleeding has diminished significantly. Patient feels comfortable going home
Discharge Plan
Departure
Patient Disposition: Home (Routine Discharge)
Date of Disposition: 07/01/24
Time of Disposition: 12:42
Patient with high blood pressure during this ER visit?: No
Discharge Problem:
Gingival bleeding
Prescriptions:
No Action
montelukast 10 MG tablet
10 mg PO DAILY
nitroglycerin 0.4 MG tablet, sublingual
0.4 mg sublingual [id number] PRN (Reason: chest pain) Qty: 25 2RF
rosuvastatin 20 MG tablet
20 mg PO Q48H
metoprolol succinate 25 MG tablet extended release 24 hr
12.5 mg PO BID
ezetimibe 10 MG tablet
10 mg PO Q48H
losartan 25 MG tablet
25 mg PO DAILY Qty: 30 0RF
ferrous sulfate [FeroSul] 325 MG tablet
325 mg PO DAILY Qty: 30 0RF
biotin 800 mcg Tablet
800 mcg PO DAILY
potassium chloride 10 mEq Tablet Extended Release
5 meq PO Q48H@2200
temazepam 15 mg Capsule
15 mg PO HS PRN (Reason: SLEEP)
levothyroxine 50 mcg Tablet
50 mcg PO DAILY
sertraline 50 mg Tablet
50 mg PO DAILY
folic acid 800 mcg Tablet
800 mcg PO DAILY
coenzyme Q10 400 mg Capsule
400 mg PO DAILY
sertraline 50 mg Tablet
50 mg PO DAILYPRN PRN (Reason: depression)
cyanocobalamin (vitamin B-12) 5,000 mcg Capsule
5,000 mcg PO DAILY
Eliquis 5 mg Tablet
5 mg PO BID Qty: 60 3RF
spironolactone 25 mg tablet
12.5 mg PO DAILY Qty: 20 1RF
furosemide 40 MG tablet
40 mg PO DAILY Qty: 0 0RF
Referrals:
Vic Shepard MD [Family Provider] -
Activity Restrictions/Additional Instructions:
Please return for any worsening symptoms.
You may return at any time if you have further concerns.
Please follow up with your doctor at the first available appointment, preferably this week.
Thank you for choosing [facility].
Interventions
Interventions:
*Risk Screen - Suicide Last Done: 07/01/24 10:24
*General Assessment Last Done: 07/01/24 10:24
Discharge Date and Time
Print Language: BULGARIAN
[2024-07-01 11:16] LABS: ALT (SGPT) 33 U/L (0-50); AST (SGOT) 34 U/L (17-59); Albumin 4.9 g/dl (3.5-5.0); Alkaline Phosphatase 58 U/L (38-126); Blood Urea Nitrogen 46 mg/dl (9-20); Calcium 9.3 mg/dl (8.4-10.2); Carbon Dioxide 27 mmol/L (22-30); Chloride 99 mmol/L (98-107); Glucose 124 mg/dl (70-99); Potassium 4.7 mmol/L (3.5-5.1); Sodium 139 mmol/L (135-145); Total Bilirubin 0.8 mg/dl (0.2-1.3); Total Protein 7.7 g/dl (6.3-8.2); eGFR 48.65
== END | disposition home or self-care (01) ==
LOC: EMR 10:22
PROVIDERS: EMERGENCY PHYSICIAN Student in an Organized Health Care Education/Training Program; FAMILY PHYSICIAN Family Medicine
DX: K06.8 Other specified disorders of gingiva and edentulous alveolar ridge (principal); R04.2 Hemoptysis; I48.0 Paroxysmal atrial fibrillation; J44.89 Other specified chronic obstructive pulmonary disease; I25.10 Atherosclerotic heart disease of native coronary artery without angina pectoris; I10 Essential (primary) hypertension; E03.9 Hypothyroidism, unspecified; E78.00 Pure hypercholesterolemia, unspecified; Z79.01 Long term (current) use of anticoagulants; Z95.1 Presence of aortocoronary bypass graft; Z95.5 Presence of coronary angioplasty implant and graft; Z88.5 Allergy status to narcotic agent; Z88.8 Allergy status to other drugs, medicaments and biological substances
CPT/HCPCS: 99283; 80053; 85025

== ENCOUNTER → 2024-07-14 13:16 | Outpatient (REF) | payer MEDICARE, OTHER, SELFPAY ==
[2024-07-14 11:25] LABS: % Basophils 0.3 % (0-2); % Eosinophils 4.1 % (0-6); % Immature Granulocytes 0.3 % (0-0.5); % Lymphocytes 16.5 % (20.5-51.1); % Monocytes 8.6 % (1.7-9.3); % Neutrophils 70.2 % (42.2-75.2); Absolute Eosinophils 0.3 10^3/uL (0-0.7); Absolute Lymphocytes 1.1 10^3/uL (1.2-3.4); Absolute Monocytes 0.6 10^3/uL (0.1-0.6); Absolute Neutrophils 4.6 10^3/uL (1.4-6.5); Hematocrit 32.2 % (39.0-52.0); Hemoglobin 10.7 g/dL (13.0-18.0); Mean Corp Hgb Conc. 33.2 g/dL (33.0-37.0); Mean Corpuscular Hgb 31.8 pg (27.0-31.0); Mean Corpuscular Volume 95.5 fL (80.0-94.0); Mean Platelet Volume 9.5 fL (7.4-10.4); Platelet Count 213 10^3/uL (130-400); Red Blood Cell Count 3.37 10^6/uL (4.70-6.10); Red Cell Dist. Width 15.6 % (11.5-14.5); White Blood Cell Count 6.6 10^3/uL (4.8-10.8)
[2024-07-14 12:27] LABS: Iron 108 ug/dl (49-181)
[2024-07-14 12:38] LABS: Percent Saturation 30 % (20-50); Total Iron Binding Capacity 360 ug/dl (261-462)
== END ==
LOC: OIDL 13:16
PROVIDERS: ATTENDING PHYSICIAN Internal Medicine Hematology & Oncology
DX: Z85.46 Personal history of malignant neoplasm of prostate (principal); D50.8 Other iron deficiency anemias
CPT/HCPCS: 82728; 83540; 83550; 85025

== ENCOUNTER → 2024-08-04 14:50 | Outpatient (REF) | payer MEDICARE, OTHER, SELFPAY ==
[2024-08-04 11:33] LABS: % Basophils 0.2 % (0-2); % Eosinophils 3.4 % (0-6); % Immature Granulocytes 0.2 % (0-0.5); % Lymphocytes 16.1 % (20.5-51.1); % Monocytes 10.1 % (1.7-9.3); Absolute Eosinophils 0.2 10^3/uL (0-0.7); Absolute Monocytes 0.6 10^3/uL (0.1-0.6); Absolute Neutrophils 4.4 10^3/uL (1.4-6.5); Hematocrit 30.5 % (39.0-52.0); Hemoglobin 10.2 g/dL (13.0-18.0); Mean Corp Hgb Conc. 33.4 g/dL (33.0-37.0); Mean Corpuscular Hgb 32.6 pg (27.0-31.0); Mean Corpuscular Volume 97.4 fL (80.0-94.0); Mean Platelet Volume 9.8 fL (7.4-10.4); Platelet Count 190 10^3/uL (130-400); Red Blood Cell Count 3.13 10^6/uL (4.70-6.10); White Blood Cell Count 6.2 10^3/uL (4.8-10.8)
== END ==
LOC: OIDL 14:50
PROVIDERS: ATTENDING PHYSICIAN Nurse Practitioner Primary Care
DX: D50.8 Other iron deficiency anemias (principal)
CPT/HCPCS: 85025

== ENCOUNTER 2024-08-13 16:01 | Inpatient (IN) | payer MEDICARE, OTHER, SELFPAY ==
[2024-08-13] VITALS (8 sets, daily range): BP systolic 99–125; BP diastolic 20–67; PULSE 77–99; BMI 31.2
--- NOTE | 2024-08-13 11:20 | ED.GENMED ---
History of Present Illness
General
Chief Complaint: Abnormal Lab Value
Source: patient
Time Seen by Provider: 08/13/24 11:08
History of Present Illness
History of Present Illness:
88-year-old male sent to the emergency room because he has had a significant drop in hemoglobin. Patient had blood work performed by his signal repairer yesterday. He received a call today that his hemoglobin dropped from 10.2-8.6. Patient does
report black stool over the past day or 2. He denies any abdominal pain. He has noticed significant shortness of breath with exertion and generalized fatigue recently. Patient does have a history of myelodysplastic syndrome but has not required a
blood transfusion in quite some time.
Past History
Past History
ED Past Medical History: Asthma, CAD, Cancer, HTN, Hypercholesterolemia, Hypothyroidism and Other
ED Past Surgical History: Cardiac (CABG, Stents X 3)
Social History
Tobacco: Non-smoker
Alcohol: Occasional
Drug: None
Personal:
Living: with family
Employment: Retired
Phy Exam
Physical Exam
Physical Exam:
General: Awake, Alert, Oriented X3. No acute distress, appears somewhat better than stated age
Vitals: unremarkable
Head: Atraumatic
Eyes: Pupils equal, EOMI
Throat: Airway intact, no exudates
Neck: Trachea midline
Lungs: Clear and equal b/l
Heart: Regular rate, no murmurs
Abd: Soft, Nontender, No pulsatile mass
Rectal: Strongly heme positive
Neuro: Nonfocal
Skin: Pale complexion, warm, dry, no rash
Extremities: pulses equal b/l, no edema
Course
Orders/Labs/Results
Orders:
Orders
08/13/24 11:19
Electrocardiogram (*1) Stat
Reason for Study: Other
Other Reason for Exam: GI Bleed
Cardiac Monitoring- Treatment ONCE
EKG- Treatment ONCE
IV Insert/Care/Rem.- Treatment PRN
Pantoprazole [Protonix IV] 80 mg IV NOW STA
08/13/24 11:32
Type+Screen Urgent
Complete Blood Count/With Diff Urgent
Comprehensive Metabolic Panel Urgent
08/13/24 16:00
Admit/Transfer Patient As Directed
Co-Sign Provider:
Level of Care: Inpatient admission
Assign to:: Telemetry
Physician / Group: karen
Diagnosis: acute blood loss anemia
Reason for Telemetry: Arrhythmia
Date to Stop Telemetry: 08/16/24
Time to Stop Telemetry: 11:00
Reason for Hospitalization: acute blood loss anemia
Expected length of stay greater than two midnights?: Yes
ELOS- Estimated Length of Stay in days: 3
I certify the patient meets the requirements for IP care: Yes
PRN Pain Medication Management As Directed
May give lesser potent ordered pain med per pt: Yes
preference::
Protocol:: Medication orders for pain may be administered in a
manner that supports deferring to patient preference
when the pt is:
- Requesting an ordered lesser potent pain medication.
Least to most potent pain medications are defined
as: acetaminophen < NSAID < tramadol < opioids
(morphine, oxycodone, hydromorphone).
- Requesting a lesser dose of the same medication IF
ORDERED.
- Requesting a less intrusive route of administration
if both routes are prescribed by the provider (PO <
IV).
08/13/24 16:01
Code Status As Directed
Resuscitation Status: Full Code
08/13/24 17:51
GASTROINTESTINAL CONSULT Routine
Consulting Provider: Jenna Zuleta
Was physician already notified: Yes
Activity As Directed
Activity Level: As Tolerated
INT (Intravenous Needle Therapy) As Directed
Comment: Place 2 IV catheters of the largest bore possible until stable
Intake/ Output As Directed
Frequency: Per unit guidelines
Orthostatic Vital Signs As Directed
Orthostatic VS Frequency: Now
Comment: then every four hours for twenty-four hours
Pneumatic Compression Sleeves As Directed
Type: Thigh high
Vital Signs As Directed
Frequency: Per unit guidelines
DX Deep Vein Thrombosis Video Routine
08/13/24 20:00
Pantoprazole [Protonix IV] 40 mg IV BID
08/13/24 20:08
H&H Q8H
08/14/24 04:09
Basic Metabolic Panel IN AM
Complete Blood Count/No Diff IN AM
H&H Q8H
08/14/24 08:00
Ezetimibe [Zetia] 10 mg PO Q48H
Ferrous Sulfate [Feosol] 325 mg PO DAILY
08/15/24 06:00
Basic Metabolic Panel IN AM
Complete Blood Count/No Diff IN AM
08/16/24 06:00
Basic Metabolic Panel IN AM
Complete Blood Count/No Diff IN AM
08/16/24 11:00
DC Protocol for Telemetry ONCE
Abnormal Lab Results
08/13/24
11:32
RBC 2.73 L 10^6/uL
(4.70-6.10)
Hgb 8.7 L g/dL
(13.0-18.0)
Hct 26.4 L %
(39.0-52.0)
MCV 96.7 H fL
(80.0-94.0)
MCH 31.9 H pg
(27.0-31.0)
RDW 15.1 H %
(11.5-14.5)
Absolute Lymphs (auto) 0.6 L 10^3/uL
(1.2-3.4)
Neutrophils % 78.1 H %
(42.2-75.2)
Lymphocytes % 10.1 L %
(20.5-51.1)
BUN 42 H mg/dl
(9-20)
Creatinine 1.5 H mg/dL
(0.7-1.3)
Glucose 118 H mg/dl
(70-99)
Antibody Screen Positive A
(Negative)
08/13/24 11:32
08/13/24 11:32
Vital Signs
Initial and Last Documented VS:
Initial Vital Signs
Temp Pulse Resp BP Pulse Ox
97.4 F 83 16 119/56 95
08/13/24 10:42 08/13/24 10:42 08/13/24 10:42 08/13/24 10:42 08/13/24 10:42
Last Documented Vital Signs
Temp Pulse Resp BP Pulse Ox
98.1 F 75 16 113/47 96
08/14/24 23:21 08/14/24 23:21 08/14/24 23:21 08/14/24 23:21 08/14/24 23:21
MDM/Problems Addressed
Differential Diagnosis Includes:
Upper GI bleed, lower GI bleed, mild dysplastic syndrome,
MDM/Problems Addressed:
Patient sent to the emergency room for evaluation of a drop in hemoglobin. Patient was actually being seen by his signal repairer who observed that the patient's recent labs were quite different than labs from a month or so ago. Patient endorses
black stool. He does take Eliquis. He feels short of breath with exertion. Workup here shows that he is hemodynamically stable. We confirmed that his hemoglobin has dropped and is currently 8.7. Patient is heme positive on rectal exam. 80 mg
of Protonix given IV. Type and screen sent. Patient will require hospitalization for close monitoring of his hemoglobin and for potential GI workup.
*Pulse Oximetry
Patient hypoxic: no
*EKG
Interpreted by ED Provider?: Yes
Heart Rate: 70
Rate: normal
Rhythm: sinus
Interval: first degree heart block
QRS Pattern: normal QRS
Ischemia: no ischemia
*Political Researcher Interpretation
Rate: normal
Interpretation: normal
Rhythm: sinus
*Critical Care Note
Total Time (30-74mins, 75-104mins- exclusive of procedures): Not Applicable
ED Attending Note
-
Portions of this chart may have been created with voice recognition software.� Occasional wrong word or��sound alike� substitutions may have occurred due to the inherent limitations of voice recognition software.
Discharge Plan
Departure
Patient Disposition: Admit
Presentation/result/management discussed w/ accepting MD/DO: Hospitalist
Condition: Fair
Discharge Problem:
Symptomatic anemia
Interventions
Interventions:
*Risk Screen - Suicide Last Done: 08/13/24 10:44
*General Assessment Last Done: 08/13/24 11:30
*Neglect/Abuse Screening Last Done: 08/13/24 10:44
*ED COVID-19 Vaccine History Last Done: 08/13/24 11:30
*Nursing Disposition Last Done: 08/13/24 17:57
Discharge Date and Time
Discharge Date/Time: 08/13/24 17:57
[2024-08-13] MEDS: PROTONIX IV 80 MG IV (11:35)
[2024-08-13 11:40] LABS: % Basophils 0.2 % (0-2); % Eosinophils 2.6 % (0-6); % Immature Granulocytes 0.3 % (0-0.5); % Lymphocytes 10.1 % (20.5-51.1); % Monocytes 8.7 % (1.7-9.3); % Neutrophils 78.1 % (42.2-75.2); Absolute Eosinophils 0.2 10^3/uL (0-0.7); Absolute Lymphocytes 0.6 10^3/uL (1.2-3.4); Absolute Monocytes 0.5 10^3/uL (0.1-0.6); Absolute Neutrophils 4.9 10^3/uL (1.4-6.5); Hematocrit 26.4 % (39.0-52.0); Hemoglobin 8.7 g/dL (13.0-18.0); Mean Corpuscular Hgb 31.9 pg (27.0-31.0); Mean Corpuscular Volume 96.7 fL (80.0-94.0); Mean Platelet Volume 9.7 fL (7.4-10.4); Nucleated Red Blood Cells % 0 % (-); Platelet Count 167 10^3/uL (130-400); Red Blood Cell Count 2.73 10^6/uL (4.70-6.10); Red Cell Dist. Width 15.1 % (11.5-14.5); White Blood Cell Count 6.2 10^3/uL (4.8-10.8)
[2024-08-13 12:01] LABS: ALT (SGPT) 28 U/L (0-50); AST (SGOT) 29 U/L (17-59); Albumin 4.7 g/dl (3.5-5.0); Alkaline Phosphatase 43 U/L (38-126); Blood Urea Nitrogen 42 mg/dl (9-20); Carbon Dioxide 28 mmol/L (22-30); Chloride 105 mmol/L (98-107); Glucose 118 mg/dl (70-99); Potassium 4.1 mmol/L (3.5-5.1); Sodium 141 mmol/L (135-145); Total Bilirubin 0.8 mg/dl (0.2-1.3)
[2024-08-13 12:34] LABS: Total Protein 7.4 g/dl (6.3-8.2); eGFR 44.78
--- NOTE | 2024-08-13 15:56 | HPS.HSE ---
Addendum entered and electronically signed by Glenda Baez MD 08/13/24 16:31:
I saw and examined the patient.
The FILLER WIPER's note was reviewed and I agree with the note.
Comment:
Mr. Lam Han is a 88 yo man with hx afib on Eliquis, CHF, MDS, radiation cystitis, essential HTN, HLD, prostate CA sent to ER after outpatient eval of weakness and black stool showed a drop in Hg over past 2 weeks from 10.4 to 8.6.�
Patient hemodynamically stable.� On exam he is conversant, in no acute distress.� CV: S1, S2, RRR. Chest clear.� Abdomen soft, non-tender. �Trace pitting edema bilateral lower extremities.
With report of black stool and worsening anemia, will admit to medicine for further monitoring.� IV Protonix BID.� NPO after MN for GI Eval and possible EGD.� Patient last took Eliquis yesterday morning.� Trend Hg.� Blood consent signed and in
chart.�
Unclear if anemia explains degree of patient�s reported weakness.� He does not appear overloaded on exam.� Will check flu and covid.�
Remainder of plan as per FILLER WIPER note.
Original Note:
Family Physician
-
Family Physician: Vic Shepard
Chief Complaint
-
anemia
History of Present Illness
Mr. Fritz with past medical history for A-fib, CHF, MDS, radiation cystitis, hypertension, hyperlipidemia, prostate cancer presented with significant drop in hemoglobin for the past couple weeks. �Patient had a blood work done as an outpatient and
noted to have a hemoglobin of 8.6. �His hemoglobin two weeks ago was 10.6. Patient had black licorice couple of days ago. �He had a black stool yesterday morning.� He has not had a bowel movement since then.� Patient denied any abdominal pain,
nausea, vomiting.� Patient denied any headache, dizziness or syncope.� Patient denied any fever, chills, chest pain, short of breath.� Patient denied dysuria hematuria
Medical History
Past Medical History
Past Medical History: Reports Other (A-fib, congestive heart failure, MDS, radiation cystitis, hypertension, hyperlipidemia, prostate cancer, )
Past Surgical History: Reports Other
Additional Past Surgical History:
urostomy bag, triple bypass, cardiac stent, right shoulder revision
Social History
Tobacco: Former Smoker
Alcohol: None
Drug: None
Personal:
Living: With Family
Family History
Family History: Not pertinent
Allergies / Home Medications
Allergies reflects when Allergies were last updated in [facility].
Home Medications with original date entered in [facility]
Allergy/Medication List:
Allergies
Allergy/AdvReac Type Severity Reaction Status Date / Time
hydrocodone (From Vicodin) Allergy Unknown Verified 07/01/24 10:24
Vqmbxvj-QRB-BoM Reductase Allergy denies. Verified 07/01/24 10:24
Inhibitor (Wekorox-Ynn-Isq Takes
Reductase Inhibitor) crestor
Home Medications
montelukast 10 mg tablet 10 mg PO DAILY Lung/breathing issues 06/27/17
nitroglycerin 0.4 mg sublingual tablet 0.4 mg sublingual [id number] PRN chest pain #25 tabs 10/05/17
rosuvastatin 20 mg tablet 20 mg PO Q48H High cholesterol 08/13/20
ezetimibe 10 mg tablet 10 mg PO Q48H High cholesterol 01/04/21
metoprolol succinate 25 mg tablet,extended release 24 hr 12.5 mg PO BID Blood pressure 01/04/21
losartan 25 mg tablet 25 mg PO DAILY #30 tabs 01/07/21
ferrous sulfate 325 mg (65 mg iron) tablet (FeroSul) 325 mg PO DAILY #30 tabs 01/15/21
biotin 800 mcg tablet 800 mcg PO DAILY Supplement 06/09/24
coenzyme Q10 400 mg capsule 400 mg PO DAILY Supplement 06/09/24
cyanocobalamin (vitamin B-12) 5,000 mcg capsule 5,000 mcg PO DAILY Supplement 06/09/24
folic acid 800 mcg tablet 800 mcg PO DAILY Supplement 06/09/24
levothyroxine 50 mcg tablet 50 mcg PO DAILY Thyroid 06/09/24
potassium chloride 10 mEq tablet,extended release 5 meq PO Q48H@2200 Supplement 06/09/24
sertraline 50 mg tablet 50 mg PO DAILY Mental Health/Anxiety 06/09/24
sertraline 50 mg tablet 50 mg PO DAILYPRN PRN depression 06/09/24
Held on 06/10/24. Instructions: Resume on 06/18/24. Discuss with your primary care provider if and if so, when, you should resume this medication.
temazepam 15 mg capsule 15 mg PO HS PRN SLEEP 06/09/24
apixaban 5 mg tablet (Eliquis) 5 mg PO BID #60 tabs 06/10/24
furosemide 40 mg tablet 40 mg PO DAILY Fluid retention/Swelling #0 tabs 06/10/24
spironolactone 25 mg tablet 12.5 mg (1/2 x 25 mg) PO DAILY #20 tabs 06/10/24
Review of Systems
-
Constitutional: Reports No Symptoms
EENT: Reports No Symptoms
Respiratory: Reports No Symptoms
Cardiac: Reports No Symptoms
Abdomen/GI: Reports Black Stools
: Reports No Symptoms
Musculoskeletal: Reports No Symptoms
Skin: Reports No Symptoms
Neurological: Reports No Symptoms
Endocrine: Reports No Symptoms
Hematologic/Lymphatic: Reports No Symptoms
Psych: Reports No Symptoms
Physical Exam
Vital Signs
Vital Signs
Temp Pulse Resp BP Pulse Ox
97.4 F 66 15 112/55 96
08/13/24 10:42 08/13/24 12:00 08/13/24 12:00 08/13/24 12:00 08/13/24 12:00
Physical Exam
General: Well Developed, Well Nourished and No Apparent Distress
HEENT: NormoCephalic, Moist mucous membranes and Atraumatic
Respiratory: Clear
Cardiac: S1/S2 and Regular Rhythm; No Murmur or Rub
GI: Soft, Non Tender, Non Distended and Normal Bowel Sounds; No Organomegaly
Rectal: Deferred by Provider
Musculoskeletal: No Clubbing, No Cyanosis and No Edema
Skin: No Rash
Neuro: AO x 3 and Nonfocal/grossly intact
Psych: Calm
Laboratory Results
-
08/13/24 11:32
08/13/24 11:32
Laboratory Results
Total Bilirubin 0.8 mg/dl (0.2-1.3) 08/13/24 11:32
AST 29 U/L (17-59) 08/13/24 11:32
ALT 28 U/L (0-50) 08/13/24 11:32
Alkaline Phosphatase 43 U/L (38-126) 08/13/24 11:32
Data Reviewed
-
Lab Data: Labs Reviewed by me
Impression/Plan
-
#acute blood loss anemia secondary to GI bleed
-IV PPI, trend hemoglobin
-Transfuse if hemoglobin less than 7\\
-regular diet, NPO after MN
-hgb 8.7
-GI consult
#CKD stage 3b
-cr 1.5
-ctm
# Paroxysmal A-fib
-Hold Eliquis
-Toprol-XL continued
# Hyperlipidemia
-Zetia, Crestor continued
# CHF
-Patient not in acute exacerbation
-Lasix, spironolactone continued
-strict DOMENIC, daily weight
#hxt of MDS
-follows [place] as outpatient.
# DVT prophylaxis
-SCDs
#CODE STATUS
-Full code
--- NOTE | 2024-08-13 16:05 | DOWNTIME ---
There was a [employer] Downtime on 08/13/2024 from 1230 to 08/13/2024 at 1550. Downtime documentation of patient's care, including medication administrations, has been reconciled in the electronic record per guidelines. Refer to the
patient's paper chart under the miscellaneous tab to see printed paper medication records and downtime forms.
[2024-08-13 18:13] LABS: COVID-19 Antigen Negative (Negative)
[2024-08-13] MEDS: LASIX 40 MG PO ×2 (18:21→20:40)
--- NOTE | 2024-08-13 18:26 | PTCARENOTE ---
no delay received. aaox3. pt ambulated to 410-2 from stretcher w/o issue nsr. vss. urostomy draining yellow urine. call doll in reach. will monitor.
[2024-08-13 20:17] LABS: Hematocrit 25.5 % (39.0-52.0); Hemoglobin 8.6 g/dL (13.0-18.0)
[2024-08-13] MEDS: PROTONIX IV 40 MG IV (20:39)
[2024-08-13] MEDS: NSS (PRESERVATIVE FREE) 10 ML IV (20:40)
[2024-08-13] MEDS: TOPROL XL 12.5 MG PO (20:41)
[2024-08-13] MEDS: LASIX PO (20:42)
[2024-08-13] MEDS: MELATONIN 5 MG PO (23:33)
[2024-08-14] VITALS (10 sets, daily range): BP systolic 103–125; BP diastolic 20–69; PULSE 75–101; O2SAT 93; BMI 31.1
[2024-08-14 04:20] LABS: Hematocrit 24.8 % (39.0-52.0); Hematocrit 25.2 % (39.0-52.0); Hemoglobin 8.5 g/dL (13.0-18.0); Hemoglobin 8.6 g/dL (13.0-18.0); Mean Corp Hgb Conc. 34.1 g/dL (33.0-37.0); Mean Corpuscular Hgb 32.5 pg (27.0-31.0); Mean Corpuscular Volume 95.1 fL (80.0-94.0); Mean Platelet Volume 9.9 fL (7.4-10.4); Platelet Count 163 10^3/uL (130-400); Red Blood Cell Count 2.65 10^6/uL (4.70-6.10); Red Cell Dist. Width 14.8 % (11.5-14.5); White Blood Cell Count 6.6 10^3/uL (4.8-10.8)
[2024-08-14 04:43] LABS: Blood Urea Nitrogen 45 mg/dl (9-20); Calcium 8.8 mg/dl (8.4-10.2); Carbon Dioxide 26 mmol/L (22-30); Chloride 103 mmol/L (98-107); Estimated Creatinine Clearance 37 ml/min; Glucose 120 mg/dl (70-99); Potassium 4.1 mmol/L (3.5-5.1); Sodium 139 mmol/L (135-145); eGFR 38.53
--- NOTE | 2024-08-14 06:39 | CON.GI ---
Addendum entered and electronically signed by Jenna Romo Do, MD 08/14/24 14:20:
I saw and examined the patient.
The FARMWORKER FRUIT's note was reviewed and I agree with the note.
Comment: Lam is an 88yo M with h/o CABG CHF and afib on eliquis with MDS who presents with dark stools and hbg of 8.6 down from 10-11 baseline. He also had heme + stool in ER. Denies abd pain nsaid use. Vitals stable. exam conversant forgetful
NTTP NABS. Labs reviewed. Last Cscope 2018 with APC in rectum no prior EGD
Impression
- Anemia with heme + dark stools
ddx includes PUD, ectasia. less likely radiation proctitis
- MDS
- Afib last eliquis dose 08/12 PM
- CHF
- CABG
- h/o prostate ca with XRT
Recommendations
- Diet now and NPO at [place] for EGD with flex sigm tomorrow
- Protonix 40mg IV BID
- Hold eliquis
- Serial H/H
Will follow with you
Recommendations
Addendum entered and electronically signed by TIMBO Young 08/14/24 10:26:
daughter Rosio updated on plan
Original Note:
Consultation
-
Date/Time Consultation Requested: 08/13/24 1750
Date/Time Consultation Performed: 08/14/25 0830
Requesting Provider: TIMBO Noble
Performing Provider: TIMBO Fuchs, Jenna Zuleta MD
Reason for Consultation: GI bleed
Medical History
Chief Complaint / HPI
Chief Complaint: black stools
History of Present Illness:
Pt is a 88yo with hx afib on Eliquis, CHF prior CABG, colon polyps, prior APC for vascular pattern in rectum, MDS, anemia, prior CEA, prostate Ca with prior radiation with radiation cystitis/urologic stricture and multiple urologic procedures
with chronic urostomy, HTN, hyperlipidemia and now presents with black stools and drop in hbg. Pt was noted with hbg 10-11 range and now drop to 8.6 with heme + stool in ER. Hx colonoscopy 2018 -- [facility] with increased vascular pattern in rectum
with APC treatment. [address] Easley with sessile serrated and HP polyp. Denies hx EGD in past.
At this time patient admits to dark stools and dizziness. He otherwise denies dysphagia, GERD, nausea, vomiting, abdominal pain, diarrhea, constipation or red blood in stools. He denies NSAID use.
Past Medical History
Past Medical History: Arrhythmias (afifb on Eliquis), Asthma, Cancer (prostate CA with prior radiation), CHF, HTN, Hypercholesterolemia and Other (MDS, radiation cystitis, urethral stricture, anemia)
Past Surgical History: Cardiac (CABG), Orthopedic (shoulder replacement ), Tonsilectomy, Urological (multiple urologic procedure with radiation cystitis and chronic urostomy ) and Other (L CEA)
Social History
Tobacco: Former Smoker
Alcohol: Occasional (rare)
Drug: None
Personal:
Living: With Family
Employment: Retired
Family History
Family History: Reviewed & Not Pertinent
Allergies / Home Medications
Allergy/AdvReac Type Severity Reaction Status Date / Time
hydrocodone (From Vicodin) Allergy Unknown Verified 07/01/24 10:24
Fkmoftx-UYK-ItC Reductase Allergy denies. Verified 07/01/24 10:24
Inhibitor (Detmwxu-Axe-Nzi Takes
Reductase Inhibitor) crestor
�Medication �Instructions �Recorded
montelukast 10 mg tablet 10 mg PO DAILY Lung/breathing 06/27/17
issues
rosuvastatin 20 mg tablet 20 mg PO Q48H High cholesterol 08/13/20
ezetimibe 10 mg tablet 10 mg PO Q48H High cholesterol 01/04/21
metoprolol succinate 25 mg 12.5 mg PO BID Blood pressure 01/04/21
tablet,extended release 24 hr
ferrous sulfate 325 mg (65 mg 325 mg PO DAILY #30 tabs 01/15/21
iron) tablet (FeroSul)
biotin 800 mcg tablet 800 mcg PO QPM Supplement 06/09/24
coenzyme Q10 400 mg capsule 400 mg PO DAILY Supplement 06/09/24
cyanocobalamin (vitamin B-12) 5,000 mcg PO DAILY Supplement 06/09/24
5,000 mcg capsule
folic acid 800 mcg tablet 800 mcg PO DAILY Supplement 06/09/24
apixaban 5 mg tablet (Eliquis) 5 mg PO BID #60 tabs 06/10/24
acetaminophen 325 mg tablet 650 mg PO Q6H PRN MILD PAIN 08/13/24
(Tylenol)
desvenlafaxine succinate 25 mg 25 mg PO DAILY 08/13/24
tablet,extended release 24 hr
(Pristiq)
furosemide 40 mg tablet 40 mg PO MOWEFR@0800 Fluid 08/13/24
retention/Swelling
furosemide 40 mg tablet (Lasix) 40 mg PO QPM 08/13/24
spironolactone 25 mg tablet 12.5 mg PO HS 08/13/24
Review of Systems
-
History Source: Patient and Family
Constitutional: Reports Fatigue
EENT: Reports No Symptoms
Respiratory: Reports No Symptoms
Cardiac: Reports No Symptoms
Abdomen/GI: Reports Black Stools (dark stool with some chronic iron use )
: Reports Other (chronic urostomy without bleeding)
Musculoskeletal: Reports No Symptoms
Skin: Reports No Symptoms
Neurological: Reports Dizzy
Endocrine: Reports No Symptoms
Hematologic/Lymphatic: Reports Bleeding
Vital Signs
Temp Pulse Resp BP Pulse Ox
98 F 101 22 103/69 95
08/14/24 03:59 08/14/24 03:59 08/14/24 03:59 08/14/24 03:59 08/14/24 03:59
Physical Exam
Exam
General: Well Developed, Well Nourished and No Apparent Distress
HEENT: Normocephalic and Anicteric
Respiratory: Clear
Cardiac: Regular Rhythm
GI: Soft, Non Distended and Normal Bowel Sounds
Rectal: Hem Positive (per ER)
Musculoskeletal: No Clubbing and No Cyanosis
Skin: Warm and Dry
Neuro: Awake, Alert and Other (forgetful at times )
Psych: Calm
Results
WBC 6.6 10^3/uL (4.8-10.8) 08/14/24 04:09
Hgb 8.5 g/dL (13.0-18.0) L 08/14/24 04:09
Hgb 8.6 g/dL (13.0-18.0) L 08/14/24 04:09
Hct 24.8 % (39.0-52.0) L 08/14/24 04:09
Hct 25.2 % (39.0-52.0) L 08/14/24 04:09
MCV 95.1 fL (80.0-94.0) H 08/14/24 04:09
Plt Count 163 10^3/uL (130-400) 08/14/24 04:09
Absolute Neuts (auto) 4.9 10^3/uL (1.4-6.5) 08/13/24 11:32
Sodium 139 mmol/L (135-145) 08/14/24 04:09
Potassium 4.1 mmol/L (3.5-5.1) 08/14/24 04:09
Chloride 103 mmol/L (98-107) 08/14/24 04:09
Carbon Dioxide 26 mmol/L (22-30) 08/14/24 04:09
BUN 45 mg/dl (9-20) H 08/14/24 04:09
Creatinine 1.7 mg/dL (0.7-1.3) H 08/14/24 04:09
Calcium 8.8 mg/dl (8.4-10.2) 08/14/24 04:09
Total Bilirubin 0.8 mg/dl (0.2-1.3) 08/13/24 11:32
AST 29 U/L (17-59) 08/13/24 11:32
ALT 28 U/L (0-50) 08/13/24 11:32
Alkaline Phosphatase 43 U/L (38-126) 08/13/24 11:32
Diagnostic Image Results:
Prior GI Procedures:
EGD: none
2019 [facility] colonoscopy
- Increased mucosa vascular pattern in the rectum.
Treated with argon plasma coagulation
(APC)-cauterization.
- No specimens collected.
Colonoscopy: 04/2015 re colonoscopy good prep to cecum
- One 10 mm polyp in the ascending colon, SS polp, Resected and retrieved.- One 3 mm polyp in the sigmoid colon. HP Resected and retrieved
Assessment / Plan
-
Pt is a 88yo with hx afib on Eliquis, CHF prior CABG, colon polyps, prior APC for vascular pattern in rectum, MDS, anemia, prior CEA, prostate Ca with prior radiation with radiation cystitis/urologic stricture and multiple urologic procedures
with chronic urostomy, HTN, hyperlipidemia and now presents with black stools and drop in hbg. Pt was noted with hbg 10-11 range and now drop to 8.6 with heme + stool in ER. Hx colonoscopy 2018 -- [facility] with increased vascular pattern in rectum
with APC treatment. [address] Easley with sessile serrated and HP polyp. Denies hx EGD in past.
-heme + stool
-symptomatic anemia - acute on chronic
-afib on Eliquis prior to admission
-hx vascular pattern in rectum with prior APC
-hx colon polyps
-hx MDS follows with hematology
-elevated creatinine
other med problems:
-prostate CA with radiation with radiation cystitis/stricture with multiple urologic procedure in past and chronic urostomy
-HTN
-Hyperlipidemia
-prior CEA
-forgetfulness on exam
PLAN:
etiology of heme + dark stool related to upper vs lower GI bleeding- PUD, ectasia, vs lower with hx vascular lesion in past vs other -- may also be multifactoral with elevated creat on admission
BUN elevated but not far off baseline but admits to some dizziness
trend hbg and stool record
Eliquis hold last dose 08/12 PM per cont to hold
plan for EGD and flex sig 08/15
ok for diet
Pt on chronic iron therapy
add on follow up iron studies, B12, folate
-
-
Thank you for consultation and allowing me to participate in the patient's care. Please call the electronic technologist GI physician during the after hours with any questions or concerns.
--- NOTE | 2024-08-14 07:14 | W.PN.HOSP.TC ---
Today's Communication/Plan
-
see a/p
Assessment / Plan
Assessment / Plan
Physical Exam
General: Well Developed, Well Nourished and No Apparent Distress
HEENT: NormoCephalic, Moist mucous membranes and Atraumatic
Respiratory: Clear
Cardiac: S1/S2 and Regular Rhythm; No Murmur or Rub
GI: Soft, Non Tender, Non Distended and Normal Bowel Sounds; No Organomegaly, urostomy present
Musculoskeletal: No Clubbing, No Cyanosis and No Edema
Skin: No Rash
Neuro: AO x 3 and Nonfocal/grossly intact
Psych: Calm
88M afib Eliquis HFpEF CABG MDS prostatic Ca rad cystitis Urostomy HTN HLD p/w progressive anemia generalized weakness fatigue and dark stool past few weeks
#acute blood loss anemia secondary to GI bleed
-IV PPI, trend hemoglobin
-Transfuse if hemoglobin <8
-GI consult appreciated npo after midnight for EGD and flex sigmoidoscopy
#hxt of MDS
-follows [place] as outpatient.
-Hematology Consult requested
#ADRIEN on CKD stage 3b
-cr 1.5 on admission
-baseline appears to be 1.0-1.2
-cont to monitor, will consider gentle hydration and hold on diuresis if significantly worsens
# Paroxysmal A-fib
-Hold Eliquis
-Toprol-XL continued
# Hyperlipidemia
-Zetia, Crestor continued
# HFpEF
-Patient not in acute exacerbation
-hold Lasix when NPO
-hold spironolactone d/t concerns adrien as above
-strict DOMENIC, daily weight
# DVT prophylaxis
-SCDs
#CODE STATUS
-Full code
discussed with patient and patient's daughter Smiley.
I spent a total of 50 minutes with the patient or on the floor. More than 50% of this time involved counseling and coordination of care.
Anticipated Discharge: 24 - 48 hours
Subjective/Interval History
-
Date of Service: August 14, 2024
No acute distress sitting up comfortably in chair. Overall reports well. Denies new acute issues at this time. Very eager to resume eating.
Objective Data
-
Labs:
Laboratory Results
08/13/24 08/14/24 08/14/24
20:08 04:09 04:09
WBC 6.6
Hgb 8.6 L 8.5 L 8.6 L
Hct 25.5 L 24.8 L
Plt Count
Sodium
Potassium
Chloride
Carbon Dioxide
BUN
Creatinine
Glucose
Calcium
08/14/24
04:09
WBC
Hgb
Hct 25.2 L
Plt Count 163
Sodium 139
Potassium 4.1
Chloride 103
Carbon Dioxide 26
BUN 45 H
Creatinine 1.7 H
Glucose 120 H
Calcium 8.8
Vital Signs:
Vital Signs
Temp Pulse Resp BP Pulse Ox
98 F 101 22 103/69 95
08/14/24 03:59 08/14/24 03:59 08/14/24 03:59 08/14/24 03:59 08/14/24 03:59
I&O
08/13/24 08/14/24 08/15/24
06:59 06:59 06:59
Output Total 1300 / 1300
Balance -1300 / -1300
[2024-08-14 08:01] LABS: Iron 65 ug/dl (49-181)
[2024-08-14 08:10] LABS: Percent Saturation 17 % (20-50); Total Iron Binding Capacity 368 ug/dl (261-462)
--- NOTE | 2024-08-14 09:45 | CM ---
Patient seen at bedside on . Patient states that he lives with his in a 2 story home but he has a first floor set up with stair glides up and down to basement and 2nd floor. Patient PCP is Dr. Coulter and he use the [facility] in [place].
Patient for further testing today per patient. CM will continue to follow for discharge planning need.
Plan; home with no needs vs home with VN pending further work up.
--- NOTE | 2024-08-14 09:46 | VATNOTE ---
Order noted for 2 large bore IVs until stable. Per H&P, Hgb is stable. No drop in H&H since arrival over 4 draws. No second IV placed at this time. Will place if new needs arise.
[2024-08-14] MEDS: TOPROL XL 12.5 MG PO ×2 (09:51→20:21)
[2024-08-14] MEDS: ALDACTONE 12.5 MG PO (09:51)
[2024-08-14] MEDS: SINGULAIR 10 MG PO (09:51)
[2024-08-14] MEDS: PRISTIQ 25 MG PO (09:51)
[2024-08-14] MEDS: CRESTOR 20 MG PO (09:51)
[2024-08-14] MEDS: ZETIA 10 MG PO (09:51)
[2024-08-14] MEDS: PROTONIX IV 40 MG IV ×2 (09:52→20:21)
[2024-08-14] MEDS: NSS (PRESERVATIVE FREE) 10 ML IV ×2 (09:52→20:20)
[2024-08-14] MEDS: FEOSOL 325 MG PO (09:52)
[2024-08-14 11:33] LABS: Ferritin 90.6 ng/ml (17.9-464.0)
[2024-08-14 12:04] LABS: Folate > 20.0 ng/ml (2.76-20); Vitamin B12 864 pg/ml (239-931)
[2024-08-14] MEDS: ZOFRAN 4 MG IV (13:24)
[2024-08-14 17:50] LABS: Hematocrit 24.8 % (39.0-52.0); Hemoglobin 8.3 g/dL (13.0-18.0)
[2024-08-14] MEDS: LASIX 40 MG PO (20:22)
[2024-08-14] MEDS: RESTORIL 7.5 MG PO (21:10)
[2024-08-15] VITALS (8 sets, daily range): BP systolic 15–121; BP diastolic 48–61; PULSE 75; O2SAT 97; BMI 31.0
[2024-08-15 07:10] LABS: Hematocrit 26.3 % (39.0-52.0); Hemoglobin 8.8 g/dL (13.0-18.0); Mean Corp Hgb Conc. 33.5 g/dL (33.0-37.0); Mean Corpuscular Hgb 32.1 pg (27.0-31.0); Platelet Count 177 10^3/uL (130-400); Red Blood Cell Count 2.74 10^6/uL (4.70-6.10); Red Cell Dist. Width 14.9 % (11.5-14.5); White Blood Cell Count 6.5 10^3/uL (4.8-10.8)
[2024-08-15 07:15] LABS: PT 14.7 Sec (11.4-14.6)
[2024-08-15] MEDS: NSS (PRESERVATIVE FREE) 10 ML IV (08:00)
[2024-08-15] MEDS: PROTONIX IV 40 MG IV (08:01)
[2024-08-15 08:11] LABS: Blood Urea Nitrogen 50 mg/dl (9-20); Calcium 8.9 mg/dl (8.4-10.2); Carbon Dioxide 25 mmol/L (22-30); Chloride 101 mmol/L (98-107); Estimated Creatinine Clearance 37 ml/min; Glucose 117 mg/dl (70-99); Potassium 4.3 mmol/L (3.5-5.1); Sodium 138 mmol/L (135-145); eGFR 38.53
--- NOTE | 2024-08-15 08:47 | W.PN.HOSP.TC ---
Addendum entered and electronically signed by Amelia Erickson MD 08/15/24 19:07:
Possible acute blood loss anemia/GIB exacerbated by Eliquis
Original Note:
Today's Communication/Plan
-
discharge
Assessment / Plan
Assessment / Plan
Physical Exam
General: Well Developed, Well Nourished and No Apparent Distress
HEENT: NormoCephalic, Moist mucous membranes and Atraumatic
Respiratory: Clear
Cardiac: S1/S2 and Regular Rhythm; No Murmur or Rub
GI: Soft, Non Tender, Non Distended and Normal Bowel Sounds; No Organomegaly, urostomy present
Musculoskeletal: No Clubbing, No Cyanosis and No Edema
Skin: No Rash
Neuro: AO x 3 conversant coherent
Psych: Calm
88M afib Eliquis HFpEF CABG MDS prostatic Ca rad cystitis Urostomy HTN HLD p/w progressive anemia generalized weakness fatigue and dark stool past few weeks
#acute blood loss anemia secondary to GI bleed
-IV PPI, trend hemoglobin
-Transfuse if hemoglobin <8
-H&H stable during stay, no need for transfusion
-GI consult appreciated EGD/flex sigmoidoscopy performed noted no source of bleeding- ok to restart Eliquis in 3-4 days of discharge. outpt follow up for video capsule endoscopy and colonoscopy
#hxt of MDS
-follows [facility] as outpatient.
-Hematology Consult appreciated cont outpt follow up recommended
#ADRIEN on CKD stage 3b
-cr 1.5 on admission increased to 1.7
-baseline appears to be 1.0-1.2
-outpt follow up repeat labwork with primary care provider recommended.
# Paroxysmal A-fib
-Hold Eliquis as above
-Toprol-XL continued
# Hyperlipidemia
-Zetia, Crestor continued
# HFpEF
-Patient not in acute exacerbation
-hold Lasix when NPO
-held spironolactone d/t concerns adrien as above, blood pressure stable without, will recommend to continue to hold for now.
-strict DOMENIC, daily weight
PT/OT appreciated home services however patient declines
# DVT prophylaxis
-SCDs
#CODE STATUS
-Full code
Medically stable for discharge home with outpatient follow up recommendations.
discussed with patient and patient's daughter Katerina
Total Time Preparing Discharge ___40____ minutes including examination of the patient, summary of the hospital stay, instructions for continuing care to all relevant caregivers; and preparation of discharge records, prescriptions, and referral
forms if necessary.
Anticipated Discharge: Today
Subjective/Interval History
-
Date of Service: August 15, 2024
Seen and examined at bedside in no acute distress. Overall reports feeling well. Denies new acute issues at this time. Eager to go home.
Objective Data
-
Labs:
Laboratory Results
08/15/24
06:48
WBC 6.5
Hgb 8.8 L
Hct 26.3 L
Plt Count 177
PT 14.7 H
INR 1.10
Sodium 138
Potassium 4.3
Chloride 101
Carbon Dioxide 25
BUN 50 H
Creatinine 1.7 H
Glucose 117 H
Calcium 8.9
Vital Signs:
Vital Signs
Temp Pulse Resp BP Pulse Ox
98 F 73 18 110/49 97
08/15/24 07:55 08/15/24 07:55 08/15/24 07:55 08/15/24 07:55 08/15/24 07:55
I&O
08/14/24 08/15/24 08/16/24
06:59 06:59 06:59
Intake Total 480 / 480
Output Total 1300 / 1300 1400 / 2350 950 / 950
Balance -1300 / -1300 -1400 / -1870 -470 / -470
--- NOTE | 2024-08-15 10:03 | CON.ONC ---
Documented by User: Yared Perla DO, Resident 08/15/24 12:32
Consultation
-
Date Consultation Requested: 08/14/24
Date Consultation Performed: 08/15/24
Requesting Provider: Amelia Erickson
Performing Provider: nJ Oliva
Reason for Consultation: Symptomatic Anemia in the Setting of MDS
Impression
Impression
Mr. Han is an 82M with a PMHx of A/fib on Eliquis, HFpEF, essential HTN, HLD, CAD s/p CABG x 3, PAD s/p L CEA, moderate mitral stenosis, and CKD3b. His hematologic and oncologic history includes a history of prostate CA treated with radiation,
subsequent radiation cystitis, and myelodysplastic syndrome. He presents with a hemoglobin of 8.6 which represents and approximately 2 point drop from an H/h obtained 1 month ago. Symptoms prior to presentation included subacute fatigue, dyspnea on
exertion, pallor, and physical examination in the ED exhibited strongly heme positive stool. Given this finding in addition to a subjective history of dark stools over the past few days, his low hemoglobin more likely represents ABLA/multifactorial
causes.
Plan
Plan
-EGD/Flex Sig today.
-Monitor H/H.
-If blood counts remain stable, patient can continue to receive Aranesp on his current outpatient schedule, next appointment in September.
-Eliquis recommendations per GI and primary.
Patient History
History of Present Illness
Mr. Han is an 82M with a PMHx of A/fib on Eliquis, HFpEF, essential HTN, HLD, CAD s/p CABG x 3, PAD s/p L CEA, moderate mitral stenosis, and CKD3b. His hematologic and oncologic history includes a history of prostate CA treated with radiation,
subsequent radiation cystitis, and myelodysplastic syndrome. He is not under current treatment for prostate CA which is being followed by Dr. Burns. MDS is being surveilled by Dr. Moran with serial H/Hs and treated with Aranesp (darbopoietin)
intermittently. Patient notes only requiring Aranesp once over the past 12 months, and not having required a transfusion in years.
History obtained from patient and his daughter who is at bedside. They state that he has been feeling fatigued and short of breath for some time. Over the past few months they note that his crystallizer operator has transitioned him from DAPT to eliquis for
A/fib and increased his standing dose of Lasix following CHF exacerbation. The patient visited his crystallizer operator 3 days ago with fatigue and exertional SOB. CBC, BNP, CXR, and EKG were ordered: Hb 8.6, Hct 25.8, MCV 97 WBC and plt WNL. TSH and BNP
WNL. Hb 8.6 represented a 2 point drop since his last H/H 1 month prior so patient was sent to ED.
In ED, patient denied abdominal pain, but did endorse a history of black stools over prior day or 2. Patient was hemodynamically stable but exhibited a pale complexion and strongly heme positive rectal exam. Hemoglobin was 8.7, creatinine was 1.5.
Patient was admitted with IV PPI, hold eliquis, NPO after midnight and plan for flex sig and EGD in today.
Past-Medical/Surgical History
Past Medical History
Atrial Fibrillation on Eliquis
HFpEF, HTN, HLD, CAD s/p CABG x 3 PAD s/p L CEA, Moderate Mitral Stenosis, CKD3b
Myelodysplastic Syndrome
Prostate CA
Radiation Cystitis
Past Surgical History
urostomy bag, triple bypass, cardiac stent, right shoulder revision
Patient Medication
�Medication �Instructions �Recorded �Confirmed �Last Taken �Type
montelukast 10 mg tablet 10 mg PO DAILY Lung/breathing 06/27/17 08/13/24 08/13/24 History
issues
rosuvastatin 20 mg tablet 20 mg PO Q48H High cholesterol 08/13/20 08/13/24 08/12/24 History
ezetimibe 10 mg tablet 10 mg PO Q48H High cholesterol 01/04/21 08/13/24 08/12/24 History
metoprolol succinate 25 mg 12.5 mg PO BID Blood pressure 01/04/21 08/13/24 08/13/24 History
tablet,extended release 24 hr
ferrous sulfate 325 mg (65 mg 325 mg PO DAILY #30 tabs 01/15/21 08/13/24 08/12/24 Rx
iron) tablet (FeroSul)
biotin 800 mcg tablet 800 mcg PO QPM Supplement 06/09/24 08/13/24 06/08/24 History
coenzyme Q10 400 mg capsule 400 mg PO DAILY Supplement 06/09/24 08/13/24 08/13/24 History
cyanocobalamin (vitamin B-12) 5,000 mcg PO DAILY Supplement 06/09/24 08/13/24 08/13/24 History
5,000 mcg capsule
folic acid 800 mcg tablet 800 mcg PO DAILY Supplement 06/09/24 08/13/24 08/12/24 History
apixaban 5 mg tablet (Eliquis) 5 mg PO BID #60 tabs 06/10/24 08/13/24 08/12/24 Rx
acetaminophen 325 mg tablet 650 mg PO Q6H PRN MILD PAIN 08/13/24 08/13/24 08/13/24 History
(Tylenol)
desvenlafaxine succinate 25 mg 25 mg PO DAILY Depression 08/13/24 08/13/24 08/13/24 History
tablet,extended release 24 hr
(Pristiq)
furosemide 40 mg tablet 40 mg PO MOWEFR@0800 Fluid 08/13/24 08/13/24 08/12/24 History
retention/Swelling
furosemide 40 mg tablet (Lasix) 40 mg PO QPM 08/13/24 08/13/24 08/12/24 History
spironolactone 25 mg tablet 12.5 mg PO HS 08/13/24 08/13/24 08/12/24 History
Active Medications
Generic Name Dose Route Start Last Admin
Trade Name Freq PRN Reason Stop Dose Admin
Desvenlafaxine Succinate 25 mg 08/14/24 08:00 08/14/24 09:51
Desvenlafaxine Succinate (Pristiq) 25 Mg Tab.Er.24h PO 09/11/24 07:59 25 mg
DAILY DEANNA Administration
Ezetimibe 10 mg 08/14/24 08:00 08/14/24 09:51
Ezetimibe (Zetia) 10 Mg Tablet PO 09/11/24 07:59 10 mg
Q48H DEANNA Administration
Ferrous Sulfate 325 mg 08/14/24 08:00 08/14/24 09:52
Ferrous Sulfate 325 Mg Tablet PO 09/11/24 07:59 325 mg
DAILY DEANNA Administration
Furosemide 40 mg 08/13/24 20:00 08/14/24 20:22
Furosemide 40 Mg Tablet PO 09/10/24 19:59 40 mg
HS DEANNA Administration
Furosemide 40 mg 08/15/24 08:00
Furosemide 40 Mg Tablet PO 09/12/24 07:59
MoWeFr@0800 DEANNA
Melatonin 5 mg 08/14/24 22:00 08/14/24 21:28
Melatonin 5 Mg Tablet PO 09/11/24 21:59 Not Given
HS DEANNA
Metoprolol Succinate 12.5 mg 08/13/24 20:00 08/14/24 20:21
Metoprolol 12.5 Mg Extended Release Dose (1/2 Of 25 Mg Xl Tablet) PO 09/10/24 19:59 12.5 mg
BID DEANNA Administration
Montelukast Sodium 10 mg 08/14/24 08:00 08/14/24 09:51
Montelukast Sodium 10 Mg Tablet PO 09/11/24 07:59 10 mg
DAILY DEANNA Administration
Ondansetron HCl 4 mg 08/14/24 12:39 08/14/24 13:24
Ondansetron 4 Mg/2 Ml Vial IV 09/11/24 12:38 4 mg
Q6HPRN PRN Administration
NAUSEA/VOMITING
Pantoprazole Sodium 40 mg 08/13/24 20:00 08/15/24 08:01
Pantoprazole Sodium 40 Mg/10 Ml Vial IV 09/10/24 19:59 40 mg
BID DEANNA Administration
Rosuvastatin Calcium 20 mg 08/14/24 08:00 08/14/24 09:51
Rosuvastatin (Crestor) 20 Mg Tablet PO 09/11/24 07:59 20 mg
Q48H DEANNA Administration
Sodium Chloride 0 flush 08/13/24 19:00
Sodium Chloride 0.9% (Flush) Syringe IV 09/10/24 18:59
PER PROTOCOL DEANNA
Sodium Chloride 10 ml 08/13/24 20:00 08/15/24 08:00
Sodium Chloride 0.9% (Preservative Free) 10 Ml Vial IV 09/10/24 19:59 10 ml
BID DEANNA Administration
Spironolactone 12.5 mg 08/14/24 08:00 08/14/24 09:51
Spironolactone 12.5 Mg Dose (1/2 Of 25 Mg Tablet) PO 09/11/24 07:59 12.5 mg
DAILY DEANNA Administration
Temazepam 7.5 mg 08/14/24 08:29 08/14/24 21:10
Temazepam 7.5 Mg Capsule PO 09/11/24 08:28 7.5 mg
HSPRN PRN Administration
sleep
Review of Systems
-
History Source: Patient and Family
Constitutional: Reports Fatigue
Respiratory: Reports Other (exertional SOB)
Cardiac: Reports No Symptoms
GI: Reports Black Stools
Physical Exam
-
General: Well Developed, Well Nourished, Comfortable and Conversant
Cardiology: Normal Sinus Rhythm, S1, S2 and Murmur (known)
Pulmonary: Clear; Negative Wheezes, Rales or Rhonchi
GI: Soft and Other (nttp)
Musculoskeletal: No Clubbing, No Cyanosis and Other (1+ bilateral LE edema)
Neurology: Non Focal
Skin: Warm and Dry
Psych: Calm
Labs
Lab Results
WBC 6.5 10^3/uL (4.8-10.8) 08/15/24 06:48
RBC 2.74 10^6/uL (4.70-6.10) L 08/15/24 06:48
Hgb 8.8 g/dL (13.0-18.0) L 08/15/24 06:48
Hct 26.3 % (39.0-52.0) L 08/15/24 06:48
MCV 96.0 fL (80.0-94.0) H 08/15/24 06:48
MCH 32.1 pg (27.0-31.0) H 08/15/24 06:48
MCHC 33.5 g/dL (33.0-37.0) 08/15/24 06:48
RDW 14.9 % (11.5-14.5) H 08/15/24 06:48
Plt Count 177 10^3/uL (130-400) 08/15/24 06:48
MPV 10.0 fL (7.4-10.4) 08/15/24 06:48
Abs Immat Gran (auto) 0.0 10^3/uL (0-0.05) 08/13/24 11:32
Absolute Neuts (auto) 4.9 10^3/uL (1.4-6.5) 08/13/24 11:32
Absolute Lymphs (auto) 0.6 10^3/uL (1.2-3.4) L 08/13/24 11:32
Absolute Monos (auto) 0.5 10^3/uL (0.1-0.6) 08/13/24 11:32
Absolute Eos (auto) 0.2 10^3/uL (0-0.7) 08/13/24 11:32
Absolute Basos (auto) 0.0 10^3/uL (0-0.2) 08/13/24 11:32
Immature Gran % 0.3 % (0-0.5) 08/13/24 11:32
Neutrophils % 78.1 % (42.2-75.2) H 08/13/24 11:32
Lymphocytes % 10.1 % (20.5-51.1) L 08/13/24 11:32
Monocytes % 8.7 % (1.7-9.3) 08/13/24 11:32
Eosinophils % 2.6 % (0-6) 08/13/24 11:32
Basophils % 0.2 % (0-2) 08/13/24 11:32
Creatinine 1.7 mg/dL (0.7-1.3) H 08/15/24 06:48
Vital Signs
Vital Signs
Temp Pulse Resp BP Pulse Ox
98 F 73 18 110/49 97
08/15/24 07:55 08/15/24 07:55 08/15/24 07:55 08/15/24 07:55 08/15/24 07:55

Documented by User: Jn Oliva MD 08/15/24 14:15
Plan
Plan
-EGD/Flex Sig today.
-Monitor H/H.
-If blood counts remain stable, patient can continue to receive Aranesp on his current outpatient schedule, next appointment in September.
-Eliquis recommendations per GI and primary.
Hematology Addendum:
Patient seen and evaluated and agree w/ internist medical doctor md note and plan
-chronic anemia - MDS - w/ dark stools concern for possible component of GI blood loss
-GI following - s/p EGD/ sigmoidoscopy w/ no apparent bleeding
-hemoglobin holding stable - 8.8g/dl
-f/u as outpt for continued erythropoietin supplementation
-follow CBC
will continue to follow with you
[2024-08-15] MEDS: FEOSOL 325 MG PO (12:01)
[2024-08-15] MEDS: ALDACTONE 12.5 MG PO (12:01)
[2024-08-15] MEDS: PRISTIQ 25 MG PO (12:01)
[2024-08-15] MEDS: TOPROL XL 12.5 MG PO (12:01)
[2024-08-15] MEDS: SINGULAIR 10 MG PO (12:01)
[2024-08-15] MEDS: LASIX 40 MG PO (12:10)
--- NOTE | 2024-08-15 13:36 | CM ---
Patient requested CM to call his daughter Smiley to ask about VN. Patient daughter declined VN as she is a nurse and will call to PCP if patient has needs. [facility] reviewed with daughter and she indicated that she will transport patient home sometime
between 3-4pm. CM will continue to follow for discharge planning needs.
Plan; home with no needs.
--- NOTE | 2024-08-15 14:11 | PN.CDI ---
CDI
- -
CDI:
Physician Documentation Request
Admit Date: 08/13/24 16:01
Dear Doctor Georgina,
Please review the following and provide your response in the progress notes.
Clinical Indicators:
Pt admitted with GI bleed/ABLA /HX of MDS syndrome
Pt with Pafib on Eliquis on hold
Please clarify the relationship between these conditions:
Yes, _ABLA/GI bleed __ is related to/associated with/exacerbated by Eliquis use ___.
No, ABLA/GI bleed ___ is not related to/associated with/exacerbated by Eliquis use ___ but it is due to ___. (Please specify)
Other ( please specify)
Use of terms such as suspected, likely, concern for, or probable (associated with a specific diagnosis that is being evaluated, monitored, or treated as if it exists) are acceptable and can be coded in the inpatient setting, when documented at the
time of discharge.
Thank you,
Sulma Herron RN
CDI Specialist
[facility]
Please use your independent medical judgment in providing your response.
--- NOTE | 2024-08-15 15:44 | W.DCSUMMARY ---
Discharge Summary
Discharge Data
Date of Admission: 08/13/24
Date of Discharge: 08/15/24
-
Pending Results: Yes
Additional Pending Results:
biopsy results to be followed with GI
Discharge Plan
-
Patient Disposition: Home (Routine Discharge)
Discharge Diagnosis/Procedures: Anemia
Suspected GI bleed
Suspected GERD
MDS (myelodysplastic syndrome)
Acute Kidney Injury on Chronic Kidney Disease Stage III
Paroxysmal Atrial Fibrillation
Hyperlipidemia
Chronic Heart Failure with Preserved Ejection Fraction
Condition: Fair
Diet: Regular
Activity: As tolerated and With Walker
Driving Restrictions: Not until seen by your Dr
Bathing Restrictions: None
Blood Work: Repeat CBC and BMP with primary care provider in 1 week of discharge.
Others Tests: Follow up with GI for outpatient video capsule endoscopy and colonoscopy
Specialty Instructions: Weigh Daily- Call MD for wt gain/loss 3 lbs overnight/5 lbs in 1 week
Activity Restrictions/Additional Instructions:
Follow up with primary care provider in 1 week of discharge and GI in 2-4 wks of discharge. Keep your appointments with Hematology.
You are cleared to resume Eliquis 08/19/24 unless bright red blood develops in stools or other obvious signs of bleeding are noted. If noted, contact GI and/or primary care provider for further recommendations.
Spironolactone placed on hold due to concerns worsening kidney function. Follow up with [facility] or primary care provider to determine when safe to resume, if necessary to resume, and/or if an alternative medication is required instead.
Protonix prescribed due to suspected GERD.
Please take medications as prescribed/recommended and follow up with primary care provider and/or other healthcare provider involved in your care for refills and/or further adjustment to your medication regimen as necessary.
Referrals:
Vic Shepard MD [Family Provider, Family Practice] - in one week
Selena Riley MD [Active, Gastroenterology] - in two to four weeks
Prescriptions:
New
pantoprazole [Protonix] 40 mg tablet,delayed release (DR/EC)
40 mg PO DAILY Qty: 30 0RF
Continued
montelukast 10 MG tablet
10 mg PO DAILY
rosuvastatin 20 MG tablet
20 mg PO Q48H
metoprolol succinate 25 MG tablet extended release 24 hr
12.5 mg PO BID
ezetimibe 10 MG tablet
10 mg PO Q48H
ferrous sulfate [FeroSul] 325 MG tablet
325 mg PO DAILY Qty: 30 0RF
biotin 800 mcg Tablet
800 mcg PO QPM
folic acid 800 mcg Tablet
800 mcg PO DAILY
coenzyme Q10 400 mg Capsule
400 mg PO DAILY
cyanocobalamin (vitamin B-12) 5,000 mcg Capsule
5,000 mcg PO DAILY
furosemide [Lasix] 40 mg Tablet
40 mg PO QPM
desvenlafaxine succinate [Pristiq] 25 mg Tablet Extended Release 24 Hr
25 mg PO DAILY
furosemide 40 MG tablet
40 mg PO MOWEFR@0800
acetaminophen [Tylenol] 325 mg Tablet
650 mg PO Q6H PRN (Reason: MILD PAIN)
Held
Eliquis 5 mg Tablet
5 mg PO BID Qty: 60 3RF
Hold Instructions: resume 08/19/24 unless bright red blood develops in stools or other obvious signs of bleeding are noted (contact GI and/or primary care provider for further recommendations)
spironolactone 25 mg tablet
12.5 mg PO HS
Hold Instructions: Follow up with primary care provider and/or your nail professional to determine when safe to resume, if necessary to resume, and/or if an alternative medication is recommended instead.
Discharge Orders:
Discharge Patient (As Directed); Ordered 08/15/24
Ordered By: Amelia Erickson
Discharge Date and Time
Print Language: WALLISIAN
--- NOTE | 2024-08-16 12:12 | W.PN.UPDATE ---
Update Note
Progress Note Update
Will also need EUS as OP for gastric submucosal lesion will follow up with GI in office to gregoryus, sent a note to senior front end developer to arrange f/u
== END 2024-08-15 17:19 | disposition home or self-care (01) | DRG 378 ==
LOC: 4 EAST ACU 16:01
PROVIDERS: Internal Medicine Gastroenterology; Nurse Practitioner Adult Health; Registered Nurse; ADMITTING PHYSICIAN Student in an Organized Health Care Education/Training Program; ATTENDING PHYSICIAN Internal Medicine; CONSULT PHYSICIAN Internal Medicine Gastroenterology; EMERGENCY PHYSICIAN Emergency Medicine; FAMILY PHYSICIAN Family Medicine; OTHER PHYSICIAN Internal Medicine Hematology & Oncology
PROC: 0DB58ZX Excision of Esophagus, Via Natural or Artificial Opening Endoscopic, Diagnostic (ICD-10-PCS; 2024-08-15)
PROC: 0DJD8ZZ Inspection of Lower Intestinal Tract, Via Natural or Artificial Opening Endoscopic (ICD-10-PCS; 2024-08-15)
PROC: 0DB98ZX Excision of Duodenum, Via Natural or Artificial Opening Endoscopic, Diagnostic (ICD-10-PCS; 2024-08-15)
DX: K31.811 Angiodysplasia of stomach and duodenum with bleeding (principal); D62 Acute posthemorrhagic anemia; D68.32 Hemorrhagic disorder due to extrinsic circulating anticoagulants; N17.9 Acute kidney failure, unspecified; I50.32 Chronic diastolic (congestive) heart failure; I13.0 Hypertensive heart and chronic kidney disease with heart failure and stage 1 through stage 4 chronic kidney disease, or unspecified chronic kidney disease; D46.9 Myelodysplastic syndrome, unspecified; N18.32 Chronic kidney disease, stage 3b; I48.0 Paroxysmal atrial fibrillation; Z85.46 Personal history of malignant neoplasm of prostate; Z79.01 Long term (current) use of anticoagulants; E78.00 Pure hypercholesterolemia, unspecified; J45.909 Unspecified asthma, uncomplicated; Z95.5 Presence of coronary angioplasty implant and graft; Z87.891 Personal history of nicotine dependence; E03.9 Hypothyroidism, unspecified; I25.10 Atherosclerotic heart disease of native coronary artery without angina pectoris; Z86.0100 Personal history of colon polyps, unspecified; Z92.3 Personal history of irradiation; Z95.1 Presence of aortocoronary bypass graft; Z96.619 Presence of unspecified artificial shoulder joint; Z11.52 Encounter for screening for COVID-19
CPT/HCPCS: 88305; 36415; 71046; 80048; 80053; 82607; 82728; 82746; 83540; 83550; 83880; 84100; 84439; 84443; 85014; 85018; 85025; 85027; 85610; 86850; 86870; 86900; 86901; 87502; 87811; 93005; 96374; 97116; 97163; 97167; 99285

== ENCOUNTER → 2024-08-20 12:49 | Outpatient (REF) | payer MEDICARE, OTHER, SELFPAY | LOC: RAD 12:49 | PROVIDERS: ATTENDING PHYSICIAN Registered Nurse; FAMILY PHYSICIAN Family Medicine | DX: I65.22 Occlusion and stenosis of left carotid artery (principal) | CPT/HCPCS: 93880 ==

== ENCOUNTER → 2024-08-25 16:03 | Outpatient (REF) | payer MEDICARE, OTHER, SELFPAY ==
[2024-08-25 12:31] LABS: % Basophils 0.2 % (0-2); % Eosinophils 3.8 % (0-6); % Immature Granulocytes 0.8 % (0-0.5); % Lymphocytes 14.4 % (20.5-51.1); % Neutrophils 69.8 % (42.2-75.2); Absolute Eosinophils 0.2 10^3/uL (0-0.7); Absolute Lymphocytes 0.7 10^3/uL (1.2-3.4); Absolute Monocytes 0.6 10^3/uL (0.1-0.6); Absolute Neutrophils 3.5 10^3/uL (1.4-6.5); Hematocrit 25.4 % (39.0-52.0); Hemoglobin 8.3 g/dL (13.0-18.0); Mean Corp Hgb Conc. 32.7 g/dL (33.0-37.0); Mean Corpuscular Hgb 31.9 pg (27.0-31.0); Mean Corpuscular Volume 97.7 fL (80.0-94.0); Mean Platelet Volume 9.6 fL (7.4-10.4); Platelet Count 202 10^3/uL (130-400); Red Cell Dist. Width 15.1 % (11.5-14.5)
== END ==
LOC: OIDL 16:03
PROVIDERS: ATTENDING PHYSICIAN Nurse Practitioner Primary Care
DX: Z85.46 Personal history of malignant neoplasm of prostate (principal); D50.8 Other iron deficiency anemias; D46.9 Myelodysplastic syndrome, unspecified
CPT/HCPCS: 85025

== ENCOUNTER → 2024-08-26 13:16 | Outpatient (REF) | payer MEDICARE, OTHER, SELFPAY ==
[2024-08-26 14:44] LABS: Iron 127 ug/dl (49-181)
[2024-08-26 14:59] LABS: Percent Saturation 32 % (20-50); Total Iron Binding Capacity 388 ug/dl (261-462)
[2024-08-26 15:52] LABS: Folate > 20.0 ng/ml (2.76-20); Vitamin B12 > 1000 pg/ml (239-931)
== END ==
LOC: OIDL 13:16
PROVIDERS: ATTENDING PHYSICIAN Nurse Practitioner Adult Health
DX: Z85.46 Personal history of malignant neoplasm of prostate (principal); D50.8 Other iron deficiency anemias; D46.9 Myelodysplastic syndrome, unspecified; D51.8 Other vitamin B12 deficiency anemias; D51.9 Vitamin B12 deficiency anemia, unspecified
CPT/HCPCS: 82607; 82728; 82746; 83540; 83550; 86850; 86870; 86900; 86901

== ENCOUNTER 2024-09-01 12:52 | Outpatient (RCR) | payer MEDICARE, OTHER, SELFPAY ==
[2024-09-01 13:08] LABS: % Eosinophils 2.4 % (0-6); % Immature Granulocytes 0.2 % (0-0.5); % Lymphocytes 13.5 % (20.5-51.1); % Monocytes 13.2 % (1.7-9.3); % Neutrophils 70.7 % (42.2-75.2); Absolute Eosinophils 0.2 10^3/uL (0-0.7); Absolute Lymphocytes 0.8 10^3/uL (1.2-3.4); Absolute Monocytes 0.8 10^3/uL (0.1-0.6); Absolute Neutrophils 4.4 10^3/uL (1.4-6.5); Hemoglobin 9.3 g/dL (13.0-18.0); Mean Corp Hgb Conc. 32.1 g/dL (33.0-37.0); Mean Corpuscular Hgb 32.3 pg (27.0-31.0); Mean Corpuscular Volume 100.7 fL (80.0-94.0); Mean Platelet Volume 9.3 fL (7.4-10.4); Platelet Count 204 10^3/uL (130-400); Red Blood Cell Count 2.88 10^6/uL (4.70-6.10); Red Cell Dist. Width 15.6 % (11.5-14.5); White Blood Cell Count 6.2 10^3/uL (4.8-10.8)
== END 2024-09-15 23:59 | disposition home or self-care (01) ==
LOC: OID 12:52
PROVIDERS: ATTENDING PHYSICIAN Internal Medicine Hematology & Oncology
DX: D50.8 Other iron deficiency anemias (principal); D46.9 Myelodysplastic syndrome, unspecified; Z85.46 Personal history of malignant neoplasm of prostate; Z79.01 Long term (current) use of anticoagulants
CPT/HCPCS: 36415; 85025; 86850; 86870; 86900; 86901; 86902; 86920; 86922

== ENCOUNTER 2024-09-15 11:56 | Outpatient (RCR) | payer MEDICARE, OTHER, SELFPAY ==
[2024-09-15 12:00] LABS: % Eosinophils 2.6 % (0-6); % Lymphocytes 14.6 % (20.5-51.1); % Neutrophils 74.8 % (42.2-75.2); Absolute Eosinophils 0.1 10^3/uL (0-0.7); Absolute Lymphocytes 0.7 10^3/uL (1.2-3.4); Absolute Monocytes 0.4 10^3/uL (0.1-0.6); Absolute Neutrophils 3.7 10^3/uL (1.4-6.5); Hematocrit 31.9 % (39.0-52.0); Hemoglobin 10.2 g/dL (13.0-18.0); Mean Corpuscular Hgb 31.3 pg (27.0-31.0); Mean Corpuscular Volume 97.9 fL (80.0-94.0); Mean Platelet Volume 9.8 fL (7.4-10.4); Platelet Count 194 10^3/uL (130-400); Red Blood Cell Count 3.26 10^6/uL (4.70-6.10); Red Cell Dist. Width 14.6 % (11.5-14.5)
== END 2024-09-15 23:59 | disposition home or self-care (01) ==
LOC: OID 11:56
PROVIDERS: ATTENDING PHYSICIAN Internal Medicine Hematology & Oncology
DX: D46.9 Myelodysplastic syndrome, unspecified (principal); Z85.46 Personal history of malignant neoplasm of prostate
CPT/HCPCS: 85025

== ENCOUNTER → 2024-09-23 13:11 | Outpatient (REF) | payer MEDICARE, OTHER, SELFPAY ==
[2024-09-23 15:46] LABS: TSH 2.17 uIU/ml (0.47-4.68)
== END ==
LOC: RAD 13:11
PROVIDERS: ATTENDING PHYSICIAN Family Medicine
DX: R06.2 Wheezing (principal); E03.9 Hypothyroidism, unspecified
CPT/HCPCS: 36415; 71046; 83880; 84443

== ENCOUNTER 2024-09-29 06:41 | Day surgery (SDC) | payer MEDICARE, OTHER, SELFPAY ==
[2024-09-29 07:39] VITALS: BMI 32.5
== END 2024-09-29 10:00 | disposition home or self-care (01) ==
LOC: CATH 06:41
PROVIDERS: ATTENDING PHYSICIAN Internal Medicine; FAMILY PHYSICIAN Family Medicine; OTHER PHYSICIAN Internal Medicine Cardiovascular Disease
DX: I48.91 Unspecified atrial fibrillation (principal); I08.3 Combined rheumatic disorders of mitral, aortic and tricuspid valves; I08.8 Other rheumatic multiple valve diseases; Z79.01 Long term (current) use of anticoagulants; Z79.899 Other long term (current) drug therapy; Z79.890 Hormone replacement therapy; I10 Essential (primary) hypertension; E78.2 Mixed hyperlipidemia; I25.10 Atherosclerotic heart disease of native coronary artery without angina pectoris; Z95.5 Presence of coronary angioplasty implant and graft; M51.369 Other intervertebral disc degeneration, lumbar region without mention of lumbar back pain or lower extremity pain; M51.34 Other intervertebral disc degeneration, thoracic region; Q21.12 Patent foramen ovale
CPT/HCPCS: 93312; 93320; 93325; 92960; 93005

== ENCOUNTER → 2024-10-06 12:18 | Outpatient (REF) | payer MEDICARE, OTHER, SELFPAY ==
[2024-10-06 11:42] LABS: Hematocrit 34.9 % (39.0-52.0); Hemoglobin 11.2 g/dL (13.0-18.0); Mean Corp Hgb Conc. 32.1 g/dL (33.0-37.0); Mean Corpuscular Volume 97.2 fL (80.0-94.0); Platelet Count 186 10^3/uL (130-400); Red Cell Dist. Width 14.5 % (11.5-14.5)
== END ==
LOC: OIDL 12:18
PROVIDERS: ATTENDING PHYSICIAN Internal Medicine Hematology & Oncology
DX: Z85.46 Personal history of malignant neoplasm of prostate (principal); D46.9 Myelodysplastic syndrome, unspecified; D50.0 Iron deficiency anemia secondary to blood loss (chronic)
CPT/HCPCS: 85025

== ENCOUNTER 2024-10-26 14:11 | Emergency (ER) | payer MEDICARE, OTHER, SELFPAY ==
[2024-10-26 14:14] VITALS: BP 133/67
[2024-10-26 14:33] LABS: Hematocrit 38.9 % (39.0-52.0); Hemoglobin 12.7 g/dL (13.0-18.0); Mean Corp Hgb Conc. 32.6 g/dL (33.0-37.0); Mean Corpuscular Volume 95.8 fL (80.0-94.0); Nucleated Red Blood Cells % 0 % (-); Platelet Count 183 10^3/uL (130-400); Red Cell Dist. Width 15.9 % (11.5-14.5)
[2024-10-26 14:57] LABS: Blood Urea Nitrogen 28 mg/dl (9-20); Calcium 9.0 mg/dl (8.4-10.2); Carbon Dioxide 27 mmol/L (22-30); Chloride 100 mmol/L (98-107); Glucose 156 mg/dl (70-99); Potassium 4.2 mmol/L (3.5-5.1); Sodium 137 mmol/L (135-145); eGFR 48.34
--- NOTE | 2024-10-26 15:42 | ED.SKININJ ---
HPI-Injury
General
Chief Complaint: Skin Problem
Source: patient and family
Exam Limitations: none
Time Seen by Provider: 10/26/24 15:32
Nursing documentation reviewed up to this point in time: agreed with
History of Present Illness-Injury
Is this injury a work related problem?: No
Is pt an associate of [facility]?: No
Initial Injury comments:
Patient to ED with rash to bilateral legs, forearms, face. Symptoms started last week. Family phoned PCP who ordered triamcinolone cream without improvement. Patient denies itchiness now but had itching initially. Denies fever/chills, recent
illness. No prior history of same.
Past History
Past History
ED Past Medical History: Asthma, CAD, Cancer, HTN, Hypercholesterolemia, Hypothyroidism and Other
ED Past Surgical History: Cardiac (CABG, Stents X 3)
Social History
Tobacco: Non-smoker
Alcohol: Occasional
Drug: None
Personal:
Living: with family
Employment: Retired
Review of Systems
Review of Systems
Allergies reviewed?: Yes
All Other Systems: ROS reviewed and negative except as documented in HPI and ROS
Constitutional: Reports no symptoms
EENT: Reports no symptoms
Respiratory: Reports no symptoms
Cardiac: Reports no symptoms
ABD/GI: Reports no symptoms
: Reports no symptoms
Musculoskeletal: Reports no symptoms
Skin: Reports other (red vesicular rash to legs, arms, face)
Neurological: Reports no symptoms
Psychiatric: Reports no symptoms
Phy Exam
General Physical Exam
General Presentation: well appearing and no apparent distress
General age: appears stated age
General Skin: warm and dry
General Habitus: normal
General Mental: alert
Musculoskeletal Exam
Musculoskeletal Exam: full ROM and neuro vasc intact
Skin Exam
Skin Exam: warm/dry and other (Red vesicular rash to legs, arms, face consistent with contact dermatitis)
Psychiatric Exam
Psychiatric Exam: normal mood/affect
Course
Orders/Labs/Results
Orders:
Orders
10/26/24 14:27
Basic Metabolic Panel Urgent
CBC/With Diff [Complete Blood Count/With Diff] Urgent
10/26/24 15:39
Prednisone [Deltasone] 40 mg PO NOW STA
Abnormal Lab Results
10/26/24
14:27
WBC 4.6 L 10^3/uL
(4.8-10.8)
RBC 4.06 L 10^6/uL
(4.70-6.10)
Hgb 12.7 L g/dL
(13.0-18.0)
Hct 38.9 L %
(39.0-52.0)
MCV 95.8 H fL
(80.0-94.0)
MCH 31.3 H pg
(27.0-31.0)
MCHC 32.6 L g/dL
(33.0-37.0)
RDW 15.9 H %
(11.5-14.5)
Absolute Lymphs (auto) 0.7 L 10^3/uL
(1.2-3.4)
Lymphocytes % 15.3 L %
(20.5-51.1)
Monocytes % 11.0 H %
(1.7-9.3)
Eosinophils % 7.1 H %
(0-6)
BUN 28 H mg/dl
(9-20)
Creatinine 1.4 H mg/dL
(0.7-1.3)
Glucose 156 H mg/dl
(70-99)
10/26/24 14:27
10/26/24 14:27
Vital Signs
Initial and Last Documented VS:
Initial Vital Signs
Temp Pulse Resp BP Pulse Ox
97.5 F 71 18 133/67 95
10/26/24 14:14 10/26/24 14:14 10/26/24 14:14 10/26/24 14:14 10/26/24 14:14
Last Documented Vital Signs
Temp Pulse Resp BP Pulse Ox
97.5 F 71 18 133/67 95
10/26/24 14:14 10/26/24 14:14 10/26/24 14:14 10/26/24 14:14 10/26/24 14:14
*Pulse Oximetry
SaO2: 95
Oxygen Mode of Delivery: Room air
Patient hypoxic: no
*Critical Care Note
Total Time (30-74mins, 75-104mins- exclusive of procedures): Not Applicable
Update Note
Update Note:
Patient to ED for eval of rash to legs, face, arms. Using triamcinoline cream without improvement. Red vesicular rash consistent with contact dermatitis. WIll place on prednisone taper. Given instructions on s/s to return to ED and he is
agreeable top elva
ED Attending Note
-
Portions of this chart may have been created with voice recognition software.� Occasional wrong word or��sound alike� substitutions may have occurred due to the inherent limitations of voice recognition software.
Discharge Plan
Departure
Patient Disposition: Home (Routine Discharge)
Date of Disposition: 10/26/24
Time of Disposition: 15:40
Patient with high blood pressure during this ER visit?: No
Condition: Good
Covid-19: Not Applicable
Discharge Problem:
Contact dermatitis
Instructions: Contact dermatitis
Prescriptions:
New
prednisone 10 mg Tablet
See Rx Instructions .ROUTE .COMPLEX Qty: 30 0RF
Rx Instructions:
Take By Mouth:
40 mg daily x3 days, 30 mg daily x3 days,
20 mg daily x3 days, 10 mg daily x3 days.
No Action
montelukast 10 MG tablet
10 mg PO DAILY
rosuvastatin 20 MG tablet
20 mg PO Q48H
metoprolol succinate 25 MG tablet extended release 24 hr
25 mg PO BID
ezetimibe 10 MG tablet
10 mg PO Q48H
ferrous sulfate [FeroSul] 325 MG tablet
325 mg PO DAILY Qty: 30 0RF
biotin 800 mcg Tablet
800 mcg PO DAILY
folic acid 800 mcg Tablet
800 mcg PO DAILY
coenzyme Q10 400 mg Capsule
400 mg PO DAILY
cyanocobalamin (vitamin B-12) 5,000 mcg Capsule
5,000 mcg PO DAILY
Eliquis 5 mg Tablet
5 mg PO BID Qty: 60 3RF
furosemide [Lasix] 40 mg Tablet
40 mg PO DAILY
furosemide 40 MG tablet
40 mg PO MOWEFR@2100
spironolactone 25 mg tablet
12.5 mg PO HS
famotidine [Pepcid] 20 mg Tablet
20 mg PO BID
desvenlafaxine succinate [Pristiq] 50 mg Tablet Extended Release 24 Hr
50 mg PO DAILY
acetaminophen [Acetaminophen Extra Strength] 500 mg Tablet
1,000 mg PO Q6H PRN (Reason: pain)
Activity Restrictions/Additional Instructions:
Follow up with your family doctor. Return to the emergency department immediately for any changes in/worsening of your symptoms
Interventions
Interventions:
*Risk Screen - Suicide Last Done: 10/26/24 14:14
*General Assessment Last Done: 10/26/24 15:00
*Neglect/Abuse Screening Last Done: 10/26/24 14:14
*ED- Fall Risk Assessment Last Done: 10/26/24 15:00
*ED COVID-19 Vaccine History Last Done: 10/26/24 15:00
ED-Skin Assessment Last Done: 10/26/24 15:36
Discharge Date and Time
Print Language: ESTONIAN
[2024-10-26] MEDS: DELTASONE 40 MG PO (15:47)
== END 2024-10-26 15:51 | disposition home or self-care (01) ==
LOC: EMR 14:11
PROVIDERS: Student in an Organized Health Care Education/Training Program; EMERGENCY PHYSICIAN Emergency Medicine; FAMILY PHYSICIAN Family Medicine
DX: L25.9 Unspecified contact dermatitis, unspecified cause (principal); E03.9 Hypothyroidism, unspecified; E78.00 Pure hypercholesterolemia, unspecified; I10 Essential (primary) hypertension; I25.10 Atherosclerotic heart disease of native coronary artery without angina pectoris; J45.909 Unspecified asthma, uncomplicated; Z95.1 Presence of aortocoronary bypass graft; Z95.5 Presence of coronary angioplasty implant and graft
CPT/HCPCS: 99283; 80048; 85025

== ENCOUNTER → 2024-11-18 15:24 | Outpatient (REF) | payer MEDICARE, OTHER, SELFPAY ==
[2024-11-18 12:01] LABS: Hematocrit 35.6 % (39.0-52.0); Hemoglobin 11.8 g/dL (13.0-18.0); Mean Corp Hgb Conc. 33.1 g/dL (33.0-37.0); Mean Corpuscular Volume 96.2 fL (80.0-94.0); Platelet Count 141 10^3/uL (130-400); Red Cell Dist. Width 14.6 % (11.5-14.5)
[2024-11-18 12:51] LABS: Iron 91 ug/dl (49-181)
[2024-11-18 13:01] LABS: Total Iron Binding Capacity 293 ug/dl (261-462)
[2024-11-18 13:25] LABS: Ferritin 216.0 ng/ml (17.9-464.0)
[2024-11-18 13:56] LABS: Folate > 20.0 ng/ml (2.76-20); Vitamin B12 > 1000 pg/ml (239-931)
== END ==
LOC: OIDL 15:24
PROVIDERS: ATTENDING PHYSICIAN Nurse Practitioner Primary Care
DX: Z85.46 Personal history of malignant neoplasm of prostate (principal); D46.9 Myelodysplastic syndrome, unspecified; D50.0 Iron deficiency anemia secondary to blood loss (chronic); D51.9 Vitamin B12 deficiency anemia, unspecified
CPT/HCPCS: 82607; 82728; 82746; 83540; 83550; 85025

== ENCOUNTER → 2024-12-08 16:11 | Outpatient (REF) | payer MEDICARE, OTHER, SELFPAY ==
[2024-12-08 10:28] LABS: Hematocrit 39.7 % (39.0-52.0); Hemoglobin 12.7 g/dL (13.0-18.0); Mean Corp Hgb Conc. 32.0 g/dL (33.0-37.0); Mean Corpuscular Volume 101.0 fL (80.0-94.0); Platelet Count 213 10^3/uL (130-400); Red Cell Dist. Width 15.7 % (11.5-14.5)
== END ==
LOC: OIDL 16:11
PROVIDERS: ATTENDING PHYSICIAN Internal Medicine Hematology & Oncology
DX: Z85.46 Personal history of malignant neoplasm of prostate (principal); D46.9 Myelodysplastic syndrome, unspecified; D50.0 Iron deficiency anemia secondary to blood loss (chronic)
CPT/HCPCS: 85025

== ENCOUNTER → 2024-12-26 12:45 | Outpatient (REF) | payer MEDICARE, OTHER, SELFPAY ==
[2024-12-26 13:52] LABS: Hematocrit 37.7 % (39.0-52.0); Hemoglobin 12.4 g/dL (13.0-18.0); Mean Corp Hgb Conc. 32.9 g/dL (33.0-37.0); Mean Corpuscular Volume 98.7 fL (80.0-94.0); Nucleated Red Blood Cells % 0 % (-); Platelet Count 205 10^3/uL (130-400); Red Cell Dist. Width 15.0 % (11.5-14.5)
[2024-12-26 14:44] LABS: ALT (SGPT) 49 U/L (0-50); AST (SGOT) 49 U/L (17-59); Albumin 4.9 g/dl (3.5-5.0); Alkaline Phosphatase 62 U/L (38-126); Blood Urea Nitrogen 32 mg/dl (9-20); Calcium 9.5 mg/dl (8.4-10.2); Carbon Dioxide 31 mmol/L (22-30); Chloride 96 mmol/L (98-107); Glucose 135 mg/dl (70-99); HDL Cholesterol 38 mg/dl; LDL Cholesterol, Calculated 79 mg/dl; Potassium 4.1 mmol/L (3.5-5.1); Sodium 138 mmol/L (135-145); Total Protein 8.0 g/dl (6.3-8.2); Very Low Density Lipoprotein 50 mg/dl (0-30); eGFR 48.34
[2024-12-26 15:14] LABS: PSA, Total - Diagnostic < 0.06 ng/ml (0.0-4.0); TSH 4.19 uIU/ml (0.47-4.68)
== END ==
LOC: REG 12:45
PROVIDERS: ATTENDING PHYSICIAN Specialist; FAMILY PHYSICIAN Family Medicine; OTHER PHYSICIAN Nurse Practitioner Primary Care
DX: Z85.46 Personal history of malignant neoplasm of prostate (principal); D50.8 Other iron deficiency anemias; D46.9 Myelodysplastic syndrome, unspecified; E78.5 Hyperlipidemia, unspecified; E03.9 Hypothyroidism, unspecified; C61 Malignant neoplasm of prostate; I10 Essential (primary) hypertension
CPT/HCPCS: 36415; 80053; 80061; 84153; 84443; 85025

== ENCOUNTER → 2025-01-16 13:24 | Outpatient (REF) | payer MEDICARE, OTHER, SELFPAY ==
[2025-01-16 13:57] LABS: Medical Necessity Pt Refused Y
[2025-01-16 14:01] LABS: Hematocrit 34.0 % (39.0-52.0); Hemoglobin 11.0 g/dL (13.0-18.0); Mean Corp Hgb Conc. 32.4 g/dL (33.0-37.0); Mean Corpuscular Volume 98.6 fL (80.0-94.0); Nucleated Red Blood Cells % 0 % (-); Platelet Count 195 10^3/uL (130-400); Red Cell Dist. Width 14.7 % (11.5-14.5)
[2025-01-16 14:57] LABS: Iron 125 ug/dl (49-181)
[2025-01-16 15:06] LABS: Total Iron Binding Capacity 358 ug/dl (261-462)
[2025-01-16 15:33] LABS: Ferritin 109.0 ng/ml (17.9-464.0)
== END ==
LOC: REG 13:24
PROVIDERS: ATTENDING PHYSICIAN Internal Medicine Hematology & Oncology; FAMILY PHYSICIAN Family Medicine; OTHER PHYSICIAN Nurse Practitioner Primary Care
DX: D50.0 Iron deficiency anemia secondary to blood loss (chronic) (principal); D46.9 Myelodysplastic syndrome, unspecified; Z85.46 Personal history of malignant neoplasm of prostate
CPT/HCPCS: 36415; 82728; 83540; 83550; 85025